=== PATIENT | female | born 1965 | race Caucasian/White ===

== ENCOUNTER 2016-12-15 15:51 | Emergency (ER) | payer MEDICAID ==
[~2016-12-15] VITALS: Ht 167.6 cm; Wt 100.0 kg
[~2016-12-15 15:51] MED LIST: 00186-0372-20 IH; ACTOS 15MG TAB15 MG PO; ALEVE 220MG220 MG PO; AMOXICILLIN 50500 MG PO; AMOXICILLIN 8751 TAB PO; ANTIVERT 25MG25 MG PO; ASPIRIN E.C. 8181 MG PO; BENTYL 20MG20 MG/TAB PO; CALAN80 MG PO; CELEXA 20MG20 MG/TAB PO; CIPRO 500MG TA500 MG PO; CITALOPRAM20 MG PO; CLARITIN 1010 MG/TAB PO; COZAAR 50MG50 MG/TAB PO; CYMBALTA 60MG60 MG PO; DESYREL 50MG50 MG PO; DOXYCYCLINE 10100 MG PO; DULCOLAX TAB5 MG PO; FLAGYL500 MG PO; FLAX SEED OIL1000 M1 PO; FLEXERIL5 MG PO; GLUCOPHAGE1000 MG PO; HCTZ12.5TAB PO; IRON TABLETS325 MG PO; JANUMET 500 MG-1 TA1 PO; JANUVIA 100MG100 MG PO; LEVAQUIN 5500 MG/TA1 PO; LEVAQUIN 750MG750 M1 PO; LEVEMIR FLEX100 U/ML SQ; LIPITOR 10MG10 MG PO; LOPRESSOR 225 MG/TAB PO; MOBIC15 MG PO; NASONEX SPRAY17 GM NS; NEURONTIN300 MG PO; NEURONTIN400 MG/CAP PO; NORCO 325 MG-51 TAB PO; NORVASC 5MG5 MG/TAB PO; OMNICEF 300MG300 MG PO; OSPHENA PO; PEPCID 20MG TAB20 MG PO; PERCOCET 325 MG1 TA2 PO; PERCR 7.5 PO; PHENERGAN 25 TA25 MG PO; PREDNISONE20 MG PO; PREMARIN .3MG0.3 MG PO; PRIL40 PO; PRO AIR INHALER; PROAIR HFA0.09 MG/AC IH; QUESTRAN4 GM/9 GM PO; SINEQUAN 1010 MG/CAP PO; SPRINTEC 35 MCG1 TAB PO; TUSS PO; ULTRAM 50MG TAB50 MG PO; VALIUM 5MG T5 MG/TAB PO; VALTREX 50500 MG/TAB PO; VENTOLIN0.09 MG IH; VOLTAREN GEL 1%1 TU TP; XANAX 0.5MG0.5 MG PO; XANAX0.25 MG PO; ZITHROMAX 250M250 MG PO; ZOVIRAX800 MG PO
[2016-12-15 15:53] VITALS: BP 157/96; TEMP 98.1
[2016-12-15] MEDS ORDERED: COLESTID 1GM1 G PO (16:31)
[2016-12-15] MEDS ORDERED: BENTYL 20MG20 MG/TAB PO (16:33)
[2016-12-15] MEDS ORDERED: PEPCID 20MG TAB20 MG PO (16:34)
[2016-12-15] MEDS ORDERED: LAMICTAL 100MG100 MG PO (16:35)
[2016-12-15] MEDS ORDERED: CALAN80 MG PO (16:37)
[2016-12-15 17:32] VITALS: PULSE 83
== END 2016-12-15 17:34 | disposition home or self-care (01) ==
LOC: COL.ER 15:51
DX: S43.401A Unspecified sprain of right shoulder joint, initial encounter (principal); S46.911A Strain of unspecified muscle, fascia and tendon at shoulder and upper arm level, right arm, initial encounter; S46.912A Strain of unspecified muscle, fascia and tendon at shoulder and upper arm level, left arm, initial encounter; X58.XXXA Exposure to other specified factors, initial encounter; E11.9 Type 2 diabetes mellitus without complications; I10 Essential (primary) hypertension; M79.7 Fibromyalgia; M62.838 Other muscle spasm; Z79.4 Long term (current) use of insulin
CPT/HCPCS: J1170; J2360

== ENCOUNTER 2017-01-03 20:18 | Emergency (ER) | payer MEDICAID ==
[~2017-01-03] VITALS: Ht 167.6 cm; Wt 113.6 kg
[~2017-01-03 20:18] MED LIST changes: +COLESTID 1GM1 G PO; +LAMICTAL 100MG100 MG PO
[2017-01-03 20:24] VITALS: BP 144/74; TEMP 98.1
[2017-01-03 23:01] LABS: BASO # 0.1 (0.0-0.2); BASO % 0.5 % (0.0-2.0); EOS # 0.3 (0.0-0.7); EOS % 2.9 % (0-4.0); GRAN # 6.2 (1.4-6.5); GRAN % 58.9 % (42.2-75.2); HEMATOCRIT 39.6 % (37.0-47.0); HEMOGLOBIN 13.3 g/dl (12.5-16.0); LYMPH # 3.3 (1.2-3.4); LYMPH % 31.7 % (20.0-51.0); MEAN CELL VOLUME 82 fl (80.0-100.0); MEAN CORPUSCULAR HEMOGLOBIN 27 pg (27.0-31.0); MEAN CORPUSCULAR HGB CONC 34 g/dl (33.0-37.0); MEAN PLATELET VOLUME 11.5 fl (7.4-10.4); MONO # 0.6 (0.1-0.6); MONO % 5.6 % (1.7-9.3); PLATELET COUNT 275 K/mm3 (130-400); RED BLOOD COUNT 4.85 M/mm3 (4.10-5.30); REDCELL DISTRIBUTION WIDTH-CV 13.2 % (11.5-14.5); WHITE BLOOD COUNT 10.5 K/mm3 (4.8-10.8)
[2017-01-03 23:12] LABS: ADJUSTED CALCIUM 9.7 mg/dL (8.4-10.2); ALBUMIN 4.2 gm/dL (3.5-5.0); BILIRUBIN,TOTAL 0.7 mg/dL (0.0-1.0); CALCIUM 9.9 mg/dL (8.4-10.2); CREATININE, serum 0.68 mg/dL (0.52-1.25); POTASSIUM 3.8 mmol/L (3.4-5.0); TOTAL PROTEIN 7.5 gm/dL (6.4-8.2)
[2017-01-03 23:36] LABS: PH 5 (5-8); URINE APPEARANCE Hazy; URINE BACTERIA Rare /hpf; URINE BILIRUBIN Negative (NEGATIVE); URINE BLOOD Negative (NEGATIVE); URINE COLOR Yellow; URINE GLUCOSE 1+ (NEGATIVE); URINE KETONE Negative (NEGATIVE); URINE RBC 0-2 /hpf; URINE UROBILINOGEN Negative (NEGATIVE)
[2017-01-04] MEDS ORDERED: TUSS PO (00:59)
[2017-01-04] MEDS ORDERED: PREDNISONE10 MG PO (00:59)
[2017-01-04] MEDS ORDERED: AMOXICILLIN 8751 TAB PO (00:59)
[2017-01-04] MEDS ORDERED: ZOFRAN 4MG T4 MG/TAB PO (01:18)
[2017-01-04 01:33] VITALS: PULSE 98
== END 2017-01-04 01:33 | disposition home or self-care (01) ==
LOC: COL.ER 20:18
PROVIDERS: Emergency Medicine
DX: R10.32 Left lower quadrant pain (principal); J45.901 Unspecified asthma with (acute) exacerbation; E11.9 Type 2 diabetes mellitus without complications; K50.90 Crohn's disease, unspecified, without complications; N28.9 Disorder of kidney and ureter, unspecified
CPT/HCPCS: J1170; J2550; J7030; J7512

== ENCOUNTER → 2017-01-08 | Outpatient (CLI) | payer MEDICAID ==
[~2017-01-08] MED LIST changes: +PHENERGAN W/CO120 M1 PO; +PREDNISONE10 MG PO; +ZOFRAN 4MG T4 MG/TAB PO; +ZOFRAN ODT8 MG PO
== END ==
LOC: COL.RAD 01-01 12:30
DX: M54.5 Low back pain (principal); G89.29 Other chronic pain; M51.36 Other intervertebral disc degeneration, lumbar region; M43.16 Spondylolisthesis, lumbar region; M51.26 Other intervertebral disc displacement, lumbar region

== ENCOUNTER → 2017-01-09 | Outpatient (CLI) | payer MEDICAID | LOC: MHCPAIN 11:12 | DX: G89.29 Other chronic pain (principal); M47.27 Other spondylosis with radiculopathy, lumbosacral region; M53.3 Sacrococcygeal disorders, not elsewhere classified | CPT/HCPCS: G0463 ==

== ENCOUNTER 2017-01-16 20:53 | Emergency (ER) | payer MEDICAID ==
[~2017-01-16] VITALS: Ht 167.6 cm; Wt 113.6 kg
[~2017-01-16 20:53] MED LIST changes: -PHENERGAN W/CO120 M1 PO; -ZOFRAN ODT8 MG PO
[2017-01-16 20:57] VITALS: TEMP 98.5
[2017-01-16 21:30] LABS: BASO % 0.3 % (0.0-2.0); EOS # 0.2 (0.0-0.7); EOS % 1.5 % (0-4.0); GRAN # 6.3 (1.4-6.5); GRAN % 61.6 % (42.2-75.2); HEMATOCRIT 42.3 % (37.0-47.0); LYMPH # 3.1 (1.2-3.4); LYMPH % 29.9 % (20.0-51.0); MEAN CELL VOLUME 82 fl (80.0-100.0); MEAN CORPUSCULAR HEMOGLOBIN 27 pg (27.0-31.0); MEAN CORPUSCULAR HGB CONC 33 g/dl (33.0-37.0); MEAN PLATELET VOLUME 10.7 fl (7.4-10.4); MONO # 0.6 (0.1-0.6); MONO % 6.2 % (1.7-9.3); PLATELET COUNT 255 K/mm3 (130-400); RED BLOOD COUNT 5.15 M/mm3 (4.10-5.30); REDCELL DISTRIBUTION WIDTH-CV 13.5 % (11.5-14.5); WHITE BLOOD COUNT 10.2 K/mm3 (4.8-10.8)
[2017-01-16 21:37] LABS: ALANINE AMINOTRANSFERASE 61 U/L (9-52); ALBUMIN 4.3 gm/dL (3.5-5.0); ALKALINE PHOSPHATASE 98 U/L (50-136); ANION GAP 17 mmol/L (7-16); BILIRUBIN,TOTAL 0.8 mg/dL (0.0-1.0); BLOOD UREA NITROGEN 9 mg/dL (7-17); CALCIUM 9.2 mg/dL (8.4-10.2); CARBON DIOXIDE 25 mmol/L (22-30); CHLORIDE 97 mmol/L (98-107); CREATININE, serum 0.59 mg/dL (0.52-1.25); GLUCOSE 370 mg/dL (74-106); LIPASE 275 U/L (23-300); POTASSIUM 4.4 mmol/L (3.4-5.0); SODIUM 139 mmol/L (137-145); TOTAL PROTEIN 7.4 gm/dL (6.4-8.2)
[2017-01-16 21:49] LABS: B-TYPE NATRIURETIC PEPTIDE 54 pg/mL (0-125)
[2017-01-16 21:55] LABS: TROPONIN-I < 0.012 ng/mL (0.000-0.034)
[2017-01-16] MEDS ORDERED: PHENERGAN W/CO120 M1 PO (22:51)
[2017-01-17 00:01] VITALS: BP 138/84; PULSE 98
== END 2017-01-17 00:10 | disposition home or self-care (01) ==
LOC: COL.ER 20:53
PROVIDERS: Emergency Medicine
DX: R07.89 Other chest pain (principal); I10 Essential (primary) hypertension; E11.9 Type 2 diabetes mellitus without complications; J44.9 Chronic obstructive pulmonary disease, unspecified; F32.9 Major depressive disorder, single episode, unspecified; F41.9 Anxiety disorder, unspecified; Z79.4 Long term (current) use of insulin
CPT/HCPCS: J1170; J1815; J2405; J7030

== ENCOUNTER 2017-02-16 15:36 | Emergency (ER) | payer MEDICAID ==
[~2017-02-16] VITALS: Ht 167.6 cm; Wt 113.6 kg
[~2017-02-16 15:36] MED LIST changes: +PHENERGAN W/CO120 M1 PO
[2017-02-16 15:39] VITALS: TEMP 98.4
[2017-02-16 16:22] LABS: BASO # 0.1 (0.0-0.2); BASO % 0.4 % (0.0-2.0); EOS # 0.4 (0.0-0.7); EOS % 3.6 % (0-4.0); GRAN # 7.3 (1.4-6.5); GRAN % 65.1 % (42.2-75.2); HEMATOCRIT 41.5 % (37.0-47.0); HEMOGLOBIN 14.2 g/dl (12.5-16.0); LYMPH # 2.8 (1.2-3.4); LYMPH % 25.2 % (20.0-51.0); MEAN CELL VOLUME 81 fl (80.0-100.0); MEAN CORPUSCULAR HEMOGLOBIN 28 pg (27.0-31.0); MEAN CORPUSCULAR HGB CONC 34 g/dl (33.0-37.0); MEAN PLATELET VOLUME 11.2 fl (7.4-10.4); MONO # 0.6 (0.1-0.6); MONO % 5.4 % (1.7-9.3); PLATELET COUNT 262 K/mm3 (130-400); RED BLOOD COUNT 5.14 M/mm3 (4.10-5.30); REDCELL DISTRIBUTION WIDTH-CV 13.2 % (11.5-14.5); WHITE BLOOD COUNT 11.2 K/mm3 (4.8-10.8)
[2017-02-16 16:27] LABS: INR 1.2 (0.8-3.0); PROTHROMBIN TIME 12.8 SECONDS (9.7-12.8)
[2017-02-16 16:35] LABS: ADJUSTED CALCIUM 9.5 mg/dL (8.4-10.2); ALBUMIN 4.3 gm/dL (3.5-5.0); BILIRUBIN,TOTAL 0.8 mg/dL (0.0-1.0); C-REACTIVE PROTEIN 2.2 mg/dL (0.0-0.9); CALCIUM 9.7 mg/dL (8.4-10.2); CREATININE, serum 0.6 mg/dL (0.52-1.25); POTASSIUM 3.5 mmol/L (3.4-5.0); TOTAL PROTEIN 7.4 gm/dL (6.4-8.2)
[2017-02-16 16:40] LABS: PH 5 (5-8); URINE APPEARANCE Clear; URINE BACTERIA None Seen /hpf; URINE BILIRUBIN Negative (NEGATIVE); URINE BLOOD Negative (NEGATIVE); URINE COLOR Yellow; URINE GLUCOSE 3+ (NEGATIVE); URINE KETONE Negative (NEGATIVE); URINE RBC 0-2 /hpf; URINE UROBILINOGEN Negative (NEGATIVE)
[2017-02-16] MEDS ORDERED: AMOXICILLIN 8751 TAB PO (17:23)
[2017-02-16] MEDS ORDERED: ZOFRAN ODT8 MG PO (17:41)
[2017-02-16 18:08] VITALS: BP 150/102; PULSE 100
== END 2017-02-16 18:12 | disposition home or self-care (01) ==
LOC: COL.ER 15:36
PROVIDERS: Emergency Medicine
DX: R10.31 Right lower quadrant pain (principal); R10.32 Left lower quadrant pain; R79.89 Other specified abnormal findings of blood chemistry; R11.2 Nausea with vomiting, unspecified; R19.7 Diarrhea, unspecified; K50.90 Crohn's disease, unspecified, without complications; E11.9 Type 2 diabetes mellitus without complications; I10 Essential (primary) hypertension; Z87.891 Personal history of nicotine dependence; Z79.4 Long term (current) use of insulin
CPT/HCPCS: J2270; J2405; J2550; J7030; J7040; Q9967

== ENCOUNTER → 2017-04-05 | Outpatient (CLI) | payer MEDICAID ==
[~2017-04-05] MED LIST changes: +ZOFRAN ODT8 MG PO
== END ==
LOC: COL.RAD 07:27
DX: K76.0 Fatty (change of) liver, not elsewhere classified (principal); K63.89 Other specified diseases of intestine; R16.2 Hepatomegaly with splenomegaly, not elsewhere classified; N26.1 Atrophy of kidney (terminal); N28.89 Other specified disorders of kidney and ureter; R19.09 Other intra-abdominal and pelvic swelling, mass and lump; M54.9 Dorsalgia, unspecified; Z90.49 Acquired absence of other specified parts of digestive tract; Z90.710 Acquired absence of both cervix and uterus
CPT/HCPCS: Q9967

== ENCOUNTER 2017-07-06 22:08 | Inpatient (IN) | payer OTHER ==
[~2017-07-06] VITALS: Ht 167.6 cm; Wt 124.3 kg
[2017-07-06 22:51] LABS: BASO % 0.4 % (0.0-2.0); EOS # 0.2 (0.0-0.7); EOS % 1.6 % (0-4.0); GRAN # 6.8 (1.4-6.5); HEMATOCRIT 41.1 % (37.0-47.0); HEMOGLOBIN 13.9 g/dl (12.5-16.0); LYMPH # 2.6 (1.2-3.4); LYMPH % 25.8 % (20.0-51.0); MEAN CELL VOLUME 81 fl (80.0-100.0); MEAN CORPUSCULAR HEMOGLOBIN 28 pg (27.0-31.0); MEAN CORPUSCULAR HGB CONC 34 g/dl (33.0-37.0); MONO # 0.6 (0.1-0.6); PLATELET COUNT 260 K/mm3 (130-400); RED BLOOD COUNT 5.05 M/mm3 (4.10-5.30); WHITE BLOOD COUNT 10.3 K/mm3 (4.8-10.8)
[2017-07-06 23:02] LABS: ADJUSTED CALCIUM 9.8 mg/dL (8.4-10.2); ALBUMIN 4.2 gm/dL (3.5-5.0); BILIRUBIN,TOTAL 0.5 mg/dL (0.0-1.0); C-REACTIVE PROTEIN 1.6 mg/dL (0.0-0.9); CREATININE, serum 0.71 mg/dL (0.52-1.25); POTASSIUM 4.4 mmol/L (3.4-5.0); TOTAL PROTEIN 7.5 gm/dL (6.4-8.2)
[2017-07-06 23:09] LABS: COLLECTION METHOD CLEAN CATCH
[2017-07-06 23:16] LABS: PH 5 (5-8); SQUAMOUS EPITHELIAL 0-2 /hpf; URINE APPEARANCE Clear; URINE BACTERIA None Seen /hpf; URINE BILIRUBIN Negative (NEGATIVE); URINE BLOOD Negative (NEGATIVE); URINE COLOR Straw; URINE GLUCOSE 3+ (NEGATIVE); URINE KETONE Negative (NEGATIVE); URINE LEUKOCYTE ESTERASE Negative (NEGATIVE); URINE PROTEIN(semi-quant) Negative (NEGATIVE); URINE RBC 0-2 /hpf; URINE UROBILINOGEN Negative (NEGATIVE); URINE WBC 0-2 /hpf
[2017-07-07] VITALS (468 sets, daily range): BP systolic 115–145; BP diastolic 69–82; PULSE 84–93; TEMP 97.8–98.5; O2SAT 91–99
[2017-07-07 06:24] LABS: BASO # 0.1 (0.0-0.2); BASO % 0.5 % (0.0-2.0); EOS # 0.2 (0.0-0.7); EOS % 2.3 % (0-4.0); GRAN # 5.8 (1.4-6.5); GRAN % 59.2 % (42.2-75.2); HEMATOCRIT 37.8 % (37.0-47.0); HEMOGLOBIN 12.5 g/dl (12.5-16.0); LYMPH % 30.8 % (20.0-51.0); MEAN CELL VOLUME 83 fl (80.0-100.0); MEAN CORPUSCULAR HEMOGLOBIN 27 pg (27.0-31.0); MEAN CORPUSCULAR HGB CONC 33 g/dl (33.0-37.0); MEAN PLATELET VOLUME 11.2 fl (7.4-10.4); MONO # 0.7 (0.1-0.6); MONO % 6.9 % (1.7-9.3); PLATELET COUNT 257 K/mm3 (130-400); RED BLOOD COUNT 4.57 M/mm3 (4.10-5.30); WHITE BLOOD COUNT 9.8 K/mm3 (4.8-10.8)
[2017-07-07 07:54] LABS: CALCIUM 9.2 mg/dL (8.4-10.2); CREATININE, serum 0.68 mg/dL (0.52-1.25); POTASSIUM 4.1 mmol/L (3.4-5.0)
[2017-07-08 00:02] VITALS: BP 106/52; PULSE 91; TEMP 98.4
[2017-07-08 03:11] VITALS: BP 140/74; PULSE 92; TEMP 97.9
[2017-07-08 08:20] VITALS: BP 135/68; PULSE 89; TEMP 98.1
[2017-07-08 09:03] LABS: CALCIUM 8.5 mg/dL (8.4-10.2); CREATININE, serum 0.59 mg/dL (0.52-1.25); POTASSIUM 4.2 mmol/L (3.4-5.0)
[2017-07-08 11:15] VITALS: BP 134/66; PULSE 98; TEMP 98.4
[2017-07-08 16:32] VITALS: BP 125/68; PULSE 98; TEMP 98.4
[2017-07-08 20:14] VITALS: BP 131/73; PULSE 98; TEMP 97.8
[2017-07-09] VITALS (7 sets, daily range): BP systolic 112–134; BP diastolic 62–86; PULSE 87–93; TEMP 97.9–98.3
[2017-07-09 08:08] LABS: CALCIUM 9.4 mg/dL (8.4-10.2); CREATININE, serum 0.58 mg/dL (0.52-1.25); POTASSIUM 3.9 mmol/L (3.4-5.0)
[2017-07-09 10:03] LABS: CHOLESTEROL RISK RATIO 6.6
[2017-07-10 07:33] LABS: CALCIUM 9.6 mg/dL (8.4-10.2); CREATININE, serum 0.62 mg/dL (0.52-1.25); POTASSIUM 3.8 mmol/L (3.4-5.0)
[2017-07-10 08:49] VITALS: BP 125/59; PULSE 92; TEMP 98.2
[2017-07-10 12:22] VITALS: BP 129/82; PULSE 93; TEMP 98.1
[2017-07-10 16:02] VITALS: BP 108/67; PULSE 94; TEMP 98.2
[2017-07-10 20:33] VITALS: BP 114/76; PULSE 90; TEMP 98
[2017-07-10 23:18] VITALS: BP 114/56; PULSE 89; TEMP 98.4
[2017-07-11 03:22] VITALS: BP 125/79; PULSE 92; TEMP 98
[2017-07-11 07:15] LABS: CALCIUM 9.5 mg/dL (8.4-10.2); CREATININE, serum 0.59 mg/dL (0.52-1.25); POTASSIUM 3.9 mmol/L (3.4-5.0)
[2017-07-11 07:57] VITALS: BP 138/80; PULSE 81; TEMP 98.4
[2017-07-11] MEDS ORDERED: LIPITOR 40MG TA40 MG PO (11:22)
[2017-07-11] MEDS ORDERED: NOVLOG SQ (11:24)
[2017-07-11] MEDS ORDERED: LEVEMIR100 U/ML SQ (11:25)
[2017-07-11 11:42] VITALS: BP 139/79; PULSE 100; TEMP 98.2
== END 2017-07-11 13:11 | disposition home or self-care (01) | DRG 638 ==
LOC: COL.ER 22:08 → ICU 23:23 → MEDICAL 23:23
PROVIDERS: Family Medicine; Nurse Practitioner; Physician Assistant
DX: E11.65 Type 2 diabetes mellitus with hyperglycemia (principal); K50.90 Crohn's disease, unspecified, without complications; Z68.41 Body mass index [BMI] 40.0-44.9, adult; E86.0 Dehydration; J44.9 Chronic obstructive pulmonary disease, unspecified; M79.7 Fibromyalgia; E11.42 Type 2 diabetes mellitus with diabetic polyneuropathy; I10 Essential (primary) hypertension; Z91.120 Patient's intentional underdosing of medication regimen due to financial hardship; Z87.891 Personal history of nicotine dependence; Z79.4 Long term (current) use of insulin; E83.39 Other disorders of phosphorus metabolism
CPT/HCPCS: 99223-AI; 99232-AI; 99238; J1644; J1815; J2405; J7030

== ENCOUNTER → 2017-08-15 | Outpatient (CLI) | payer OTHER ==
[~2017-08-15] MED LIST changes: +LEVEMIR100 U/ML SQ; +LIPITOR 40MG TA40 MG PO; +NOVLOG SQ
== END ==
LOC: SUN.DIA 10:17
DX: E11.40 Type 2 diabetes mellitus with diabetic neuropathy, unspecified (principal); Z79.4 Long term (current) use of insulin; E78.5 Hyperlipidemia, unspecified; I10 Essential (primary) hypertension; E66.9 Obesity, unspecified; Z68.41 Body mass index [BMI] 40.0-44.9, adult; Z71.3 Dietary counseling and surveillance; Z87.891 Personal history of nicotine dependence
CPT/HCPCS: G0108

== ENCOUNTER 2017-08-17 00:06 | Emergency (ER) | payer OTHER ==
[~2017-08-17] VITALS: Ht 167.6 cm; Wt 116.8 kg
[2017-08-17 00:18] VITALS: TEMP 98.9
[2017-08-17 01:07] LABS: BASO % 0.4 % (0.0-2.0); EOS # 0.2 (0.0-0.7); EOS % 1.9 % (0-4.0); GRAN # 6.1 (1.4-6.5); GRAN % 58.8 % (42.2-75.2); HEMATOCRIT 40.5 % (37.0-47.0); HEMOGLOBIN 13.1 g/dl (12.5-16.0); LYMPH # 3.3 (1.2-3.4); LYMPH % 31.9 % (20.0-51.0); MEAN CELL VOLUME 83 fl (80.0-100.0); MEAN CORPUSCULAR HEMOGLOBIN 27 pg (27.0-31.0); MEAN CORPUSCULAR HGB CONC 32 g/dl (33.0-37.0); MEAN PLATELET VOLUME 10.9 fl (7.4-10.4); MONO # 0.7 (0.1-0.6); MONO % 6.7 % (1.7-9.3); PLATELET COUNT 300 K/mm3 (130-400); RED BLOOD COUNT 4.86 M/mm3 (4.10-5.30); WHITE BLOOD COUNT 10.3 K/mm3 (4.8-10.8)
[2017-08-17 01:12] LABS: PROTHROMBIN TIME 11.7 SECONDS (9.7-12.8)
[2017-08-17 01:15] LABS: PARTIAL THROMBOPLASTIN TIME 28.1 SECONDS (26.0-37.0)
[2017-08-17 01:17] LABS: ADJUSTED CALCIUM 9.5 mg/dL (8.4-10.2); ALANINE AMINOTRANSFERASE 60 U/L (9-52); ALBUMIN 4.3 gm/dL (3.5-5.0); ALKALINE PHOSPHATASE 113 U/L (50-136); ANION GAP 12 mmol/L (7-16); BILIRUBIN,TOTAL 0.4 mg/dL (0.0-1.0); BLOOD UREA NITROGEN 15 mg/dL (7-17); CALCIUM 9.7 mg/dL (8.4-10.2); CARBON DIOXIDE 25 mmol/L (22-30); CHLORIDE 102 mmol/L (98-107); CREATININE, serum 0.63 mg/dL (0.52-1.25); GLUCOSE 329 mg/dL (74-106); POTASSIUM 4.2 mmol/L (3.4-5.0); SODIUM 139 mmol/L (137-145); TOTAL PROTEIN 7.5 gm/dL (6.4-8.2)
[2017-08-17 01:28] LABS: TROPONIN-I < 0.012 ng/mL (0.000-0.034)
[2017-08-17] MEDS ORDERED: NEURONTIN400 MG/CAP PO (04:32)
[2017-08-17 05:05] VITALS: BP 144/89; PULSE 76
== END 2017-08-17 05:09 | disposition home or self-care (01) ==
LOC: COL.ER 00:06
PROVIDERS: Emergency Medicine
DX: M62.838 Other muscle spasm (principal); R07.89 Other chest pain; M54.9 Dorsalgia, unspecified; M54.2 Cervicalgia; M79.602 Pain in left arm; I10 Essential (primary) hypertension; E11.9 Type 2 diabetes mellitus without complications; E78.5 Hyperlipidemia, unspecified; E66.9 Obesity, unspecified; M79.7 Fibromyalgia; Z79.4 Long term (current) use of insulin; Z95.5 Presence of coronary angioplasty implant and graft; Z87.891 Personal history of nicotine dependence; Z79.82 Long term (current) use of aspirin
CPT/HCPCS: J1815; J1885; J2360

== ENCOUNTER 2017-11-07 22:04 | Emergency (ER) | payer OTHER ==
[~2017-11-07] VITALS: Ht 167.6 cm; Wt 113.6 kg
[2017-11-07 22:12] VITALS: TEMP 98.3
[2017-11-08 00:32] VITALS: BP 138/92; PULSE 91
== END 2017-11-08 00:33 | disposition home or self-care (01) ==
LOC: COL.ER 22:04
DX: S40.012A Contusion of left shoulder, initial encounter (principal); S63.91XA Sprain of unspecified part of right wrist and hand, initial encounter; J45.909 Unspecified asthma, uncomplicated; F32.9 Major depressive disorder, single episode, unspecified; E11.9 Type 2 diabetes mellitus without complications; I10 Essential (primary) hypertension; F17.210 Nicotine dependence, cigarettes, uncomplicated; M79.7 Fibromyalgia; Z79.4 Long term (current) use of insulin; W22.8XXA Striking against or struck by other objects, initial encounter; Y92.410 Unspecified street and highway as the place of occurrence of the external cause
CPT/HCPCS: Q4021

== ENCOUNTER 2018-03-02 10:10 | Emergency (ER) | payer SELFPAY ==
[~2018-03-02] VITALS: Ht 167.6 cm; Wt 124.1 kg
[2018-03-02 10:17] VITALS: BP 151/85; TEMP 99
[2018-03-02 11:00] LABS: COLLECTION METHOD CLEAN CATCH
[2018-03-02 11:06] LABS: MUCOUS Present /lpf; PH 5 (5-8); URINE APPEARANCE Hazy; URINE BACTERIA Rare /hpf; URINE BILIRUBIN Negative (NEGATIVE); URINE BLOOD Negative (NEGATIVE); URINE COLOR Yellow; URINE GLUCOSE Negative (NEGATIVE); URINE KETONE Negative (NEGATIVE); URINE LEUKOCYTE ESTERASE Negative (NEGATIVE); URINE NITRATE Negative (NEGATIVE); URINE PROTEIN(semi-quant) 1+ (NEGATIVE); URINE RBC 0-2 /hpf; URINE UROBILINOGEN Negative (NEGATIVE)
[2018-03-02 11:14] LABS: BASO % 0.4 % (0.0-2.0); EOS # 0.3 (0.0-0.7); EOS % 3.2 % (0-4.0); GRAN # 5.5 (1.4-6.5); GRAN % 65.1 % (42.2-75.2); HEMATOCRIT 39.1 % (37.0-47.0); HEMOGLOBIN 12.4 g/dl (12.5-16.0); LYMPH # 2.1 (1.2-3.4); LYMPH % 24.3 % (20.0-51.0); MEAN CELL VOLUME 82 fl (80.0-100.0); MEAN CORPUSCULAR HEMOGLOBIN 26 pg (27.0-31.0); MEAN CORPUSCULAR HGB CONC 32 g/dl (33.0-37.0); MEAN PLATELET VOLUME 10.4 fl (7.4-10.4); MONO # 0.6 (0.1-0.6); MONO % 6.6 % (1.7-9.3); PLATELET COUNT 341 K/mm3 (130-400); RED BLOOD COUNT 4.78 M/mm3 (4.10-5.30); REDCELL DISTRIBUTION WIDTH-CV 14.3 % (11.5-14.5)
[2018-03-02 11:25] LABS: ALBUMIN 3.6 gm/dL (3.5-5.0); BILIRUBIN,TOTAL 0.3 mg/dL (0.0-1.0); CALCIUM 9.4 mg/dL (8.4-10.2); CREATININE, serum 0.66 mg/dL (0.52-1.25); POTASSIUM 4.2 mmol/L (3.4-5.0); TOTAL PROTEIN 6.7 gm/dL (6.4-8.2)
[2018-03-02] MEDS ORDERED: ULTRAM 50MG TAB50 MG PO (12:15)
[2018-03-02] MEDS ORDERED: TRIAM OI 15 0.025 TOP (13:03)
[2018-03-02 13:10] VITALS: PULSE 87
== END 2018-03-02 13:11 | disposition home or self-care (01) ==
LOC: COL.ER 10:10
PROVIDERS: Emergency Medicine
DX: E10.65 Type 1 diabetes mellitus with hyperglycemia (principal); M79.602 Pain in left arm; M25.512 Pain in left shoulder; M54.5 Low back pain; Z79.4 Long term (current) use of insulin; Z88.2 Allergy status to sulfonamides; Z88.1 Allergy status to other antibiotic agents; Z88.8 Allergy status to other drugs, medicaments and biological substances; Z79.82 Long term (current) use of aspirin; Z79.51 Long term (current) use of inhaled steroids; X50.0XXA Overexertion from strenuous movement or load, initial encounter; Y99.0 Civilian activity done for income or pay; Y92.59 Other trade areas as the place of occurrence of the external cause
CPT/HCPCS: J1170; J1885; J2405; J7030

== ENCOUNTER 2018-05-23 19:20 | Emergency (ER) | payer SELFPAY ==
[~2018-05-23] VITALS: Ht 167.6 cm; Wt 113.6 kg
[~2018-05-23 19:20] MED LIST changes: +TRIAM OI 15 0.025 TOP
[2018-05-23 19:27] VITALS: BP 111/64; TEMP 97.9
[2018-05-23 21:51] LABS: BASO % 0.3 % (0.0-2.0); EOS # 0.1 (0.0-0.7); EOS % 0.9 % (0-4.0); GRAN # 10.3 (1.4-6.5); GRAN % 79.2 % (42.2-75.2); HEMATOCRIT 40.5 % (37.0-47.0); HEMOGLOBIN 12.7 g/dl (12.5-16.0); LYMPH # 1.8 (1.2-3.4); LYMPH % 14.2 % (20.0-51.0); MEAN CELL VOLUME 80 fl (80.0-100.0); MEAN CORPUSCULAR HEMOGLOBIN 25 pg (27.0-31.0); MEAN CORPUSCULAR HGB CONC 31 g/dl (33.0-37.0); MONO # 0.6 (0.1-0.6); MONO % 4.9 % (1.7-9.3); PLATELET COUNT 313 K/mm3 (130-400); RED BLOOD COUNT 5.05 M/mm3 (4.10-5.30); REDCELL DISTRIBUTION WIDTH-CV 14.2 % (11.5-14.5)
[2018-05-23 22:06] LABS: ALANINE AMINOTRANSFERASE 56 U/L (9-52); ALBUMIN 4.2 gm/dL (3.5-5.0); ALKALINE PHOSPHATASE 93 U/L (50-136); ANION GAP 16 mmol/L (7-16); AST,SGOT 56 U/L (15-37); BILIRUBIN,TOTAL 0.3 mg/dL (0.0-1.0); BLOOD UREA NITROGEN 15 mg/dL (7-17); C-REACTIVE PROTEIN 2.2 mg/dL (0.0-0.9); CALCIUM 9.3 mg/dL (8.4-10.2); CARBON DIOXIDE 24 mmol/L (22-30); CHLORIDE 96 mmol/L (98-107); CREATININE, serum 0.97 mg/dL (0.52-1.25); GLUCOSE 314 mg/dL (74-106); LIPASE 137 U/L (23-300); POTASSIUM 4.2 mmol/L (3.4-5.0); SODIUM 136 mmol/L (137-145); TOTAL PROTEIN 7.2 gm/dL (6.4-8.2)
[2018-05-23 22:11] LABS: COLLECTION METHOD CLEAN CATCH
[2018-05-23 22:15] LABS: TROPONIN-I < 0.012 ng/mL (0.000-0.034)
[2018-05-23 22:23] LABS: GRANULAR CAST >12 /lpf; HYALINE CAST >12 /lpf; MUCOUS Present /lpf; PH 5 (5-8); URINE APPEARANCE Cloudy; URINE BACTERIA None Seen /hpf; URINE BILIRUBIN Positive (NEGATIVE); URINE BLOOD Negative (NEGATIVE); URINE COLOR Amber; URINE GLUCOSE Negative (NEGATIVE); URINE KETONE Trace (NEGATIVE); URINE LEUKOCYTE ESTERASE Negative (NEGATIVE); URINE NITRATE Negative (NEGATIVE); URINE PROTEIN(semi-quant) 3+ (NEGATIVE)
[2018-05-24] MEDS ORDERED: PHENERGAN 25 TA25 MG PO (00:13)
[2018-05-24 00:22] VITALS: PULSE 92
== END 2018-05-24 00:22 | disposition home or self-care (01) ==
LOC: COL.ER 19:20
PROVIDERS: Nurse Practitioner
DX: R10.9 Unspecified abdominal pain (principal); R51 Headache; E11.9 Type 2 diabetes mellitus without complications; I10 Essential (primary) hypertension; J45.909 Unspecified asthma, uncomplicated; K50.90 Crohn's disease, unspecified, without complications; M79.7 Fibromyalgia; M54.9 Dorsalgia, unspecified; G89.29 Other chronic pain; F17.210 Nicotine dependence, cigarettes, uncomplicated; Z79.4 Long term (current) use of insulin; Z79.82 Long term (current) use of aspirin; Z90.49 Acquired absence of other specified parts of digestive tract; Z90.710 Acquired absence of both cervix and uterus
CPT/HCPCS: J1170; J2405; J2550; J7030

== ENCOUNTER 2018-09-03 21:45 | Emergency (ER) | payer SELFPAY ==
[~2018-09-03] VITALS: Ht 167.6 cm; Wt 113.6 kg
[2018-09-03 21:55] VITALS: TEMP 97.7
[2018-09-03 22:42] LABS: BASO # 0.1 (0.0-0.2); BASO % 0.4 % (0.0-2.0); EOS # 0.3 (0.0-0.7); EOS % 2.9 % (0-4.0); GRAN # 7.6 (1.4-6.5); HEMATOCRIT 37.6 % (37.0-47.0); LYMPH # 2.9 (1.2-3.4); MEAN CELL VOLUME 80 fl (80.0-100.0); MEAN CORPUSCULAR HEMOGLOBIN 26 pg (27.0-31.0); MEAN CORPUSCULAR HGB CONC 32 g/dl (33.0-37.0); MEAN PLATELET VOLUME 9.8 fl (7.4-10.4); MONO # 0.8 (0.1-0.6); MONO % 6.4 % (1.7-9.3); PLATELET COUNT 352 K/mm3 (130-400); RED BLOOD COUNT 4.68 M/mm3 (4.10-5.30); REDCELL DISTRIBUTION WIDTH-CV 14.6 % (11.5-14.5)
[2018-09-03 22:52] LABS: ALBUMIN 3.9 gm/dL (3.5-5.0); BILIRUBIN,TOTAL 0.5 mg/dL (0.0-1.0); CALCIUM 8.9 mg/dL (8.4-10.2); CREATININE, serum 0.68 mg/dL (0.52-1.25); POTASSIUM 3.7 mmol/L (3.4-5.0); TOTAL PROTEIN 6.8 gm/dL (6.4-8.2)
[2018-09-03] MEDS ORDERED: ZITHROMAX500 M2 PO (23:39)
[2018-09-04 00:37] VITALS: BP 132/83; PULSE 96
== END 2018-09-04 00:37 | disposition home or self-care (01) ==
LOC: COL.ER 21:45
PROVIDERS: Family Medicine
DX: J06.9 Acute upper respiratory infection, unspecified (principal); B34.9 Viral infection, unspecified; J44.9 Chronic obstructive pulmonary disease, unspecified; Z79.4 Long term (current) use of insulin; Z79.82 Long term (current) use of aspirin; Z87.891 Personal history of nicotine dependence
CPT/HCPCS: J1885; J7030

== ENCOUNTER 2018-11-30 18:21 | Emergency (ER) | payer SELFPAY ==
[~2018-11-30] VITALS: Ht 167.6 cm; Wt 113.6 kg
[~2018-11-30 18:21] MED LIST changes: +ZITHROMAX500 M2 PO
[2018-11-30 18:29] VITALS: BP 171/79; PULSE 98; TEMP 98.5
== END 2018-11-30 20:36 | disposition home or self-care (01) ==
LOC: COL.ER 18:21
DX: Z71.1 Person with feared health complaint in whom no diagnosis is made (principal); E11.9 Type 2 diabetes mellitus without complications; I10 Essential (primary) hypertension; J45.909 Unspecified asthma, uncomplicated; M79.7 Fibromyalgia; Z79.4 Long term (current) use of insulin; Z87.891 Personal history of nicotine dependence

== ENCOUNTER 2019-01-14 11:04 | Emergency (ER) | payer SELFPAY ==
[~2019-01-14] VITALS: Ht 167.6 cm; Wt 109.1 kg
[2019-01-14 12:03] LABS: COLLECTION METHOD CLEAN CATCH
[2019-01-14 12:10] LABS: PH 5 (5-8); URINE APPEARANCE Clear; URINE BACTERIA None Seen /hpf; URINE BILIRUBIN Negative (NEGATIVE); URINE BLOOD Negative (NEGATIVE); URINE COLOR Yellow; URINE GLUCOSE 3+ (NEGATIVE); URINE KETONE Negative (NEGATIVE); URINE LEUKOCYTE ESTERASE Trace (NEGATIVE); URINE NITRATE Negative (NEGATIVE); URINE PROTEIN(semi-quant) Negative (NEGATIVE); URINE UROBILINOGEN Negative (NEGATIVE)
[2019-01-14 12:45] LABS: BASO % 0.4 % (0.0-2.0); EOS # 0.3 (0.0-0.7); EOS % 2.6 % (0-4.0); GRAN # 6.6 (1.4-6.5); GRAN % 60.5 % (42.2-75.2); HEMATOCRIT 40.3 % (37.0-47.0); HEMOGLOBIN 13.1 g/dl (12.5-16.0); LYMPH # 3.2 (1.2-3.4); LYMPH % 29.2 % (20.0-51.0); MEAN CELL VOLUME 79 fl (80.0-100.0); MEAN CORPUSCULAR HEMOGLOBIN 26 pg (27.0-31.0); MEAN CORPUSCULAR HGB CONC 33 g/dl (33.0-37.0); MONO # 0.7 (0.1-0.6); MONO % 6.8 % (1.7-9.3); PLATELET COUNT 297 K/mm3 (130-400); REDCELL DISTRIBUTION WIDTH-CV 14.5 % (11.5-14.5)
[2019-01-14 12:53] LABS: ALBUMIN 3.9 gm/dL (3.5-5.0); BILIRUBIN,TOTAL 0.4 mg/dL (0.0-1.0); CALCIUM 9.8 mg/dL (8.4-10.2); CREATININE, serum 0.63 (0.52-1.25); POTASSIUM 4.3 mmol/L (3.4-5.0); TOTAL PROTEIN 6.8 gm/dL (6.4-8.2)
[2019-01-14 13:07] LABS: STREP SCREEN NEGATIVE
[2019-01-14] MEDS ORDERED: LOPRESSOR 225 MG/TAB PO (13:19)
[2019-01-14] MEDS ORDERED: LIPITOR20 MG PO (13:19)
[2019-01-14] MEDS ORDERED: NEURONTIN400 MG/CAP PO (14:39)
[2019-01-14] MEDS ORDERED: FLEXERIL 1010 MG/TAB PO (14:39)
[2019-01-14] MEDS ORDERED: MACROBID 1100 MG/CAP PO (14:50)
[2019-01-14 15:05] VITALS: BP 131/77; PULSE 115; TEMP 98.3
== END 2019-01-14 15:05 | disposition home or self-care (01) ==
LOC: COL.ER 11:04
PROVIDERS: Nurse Practitioner Primary Care
DX: E11.65 Type 2 diabetes mellitus with hyperglycemia (principal); N39.0 Urinary tract infection, site not specified; B34.9 Viral infection, unspecified; I10 Essential (primary) hypertension; M79.7 Fibromyalgia; F41.9 Anxiety disorder, unspecified; Z98.890 Other specified postprocedural states; Z79.82 Long term (current) use of aspirin; Z79.4 Long term (current) use of insulin
CPT/HCPCS: J1815; J1885; J2550; J7030

== ENCOUNTER 2019-01-22 19:28 | Emergency (ER) | payer SELFPAY ==
[~2019-01-22] VITALS: Ht 167.6 cm; Wt 109.1 kg
[~2019-01-22 19:28] MED LIST changes: +FLEXERIL 1010 MG/TAB PO; +LIPITOR20 MG PO; +MACROBID 1100 MG/CAP PO
[2019-01-22 19:38] VITALS: TEMP 97.7
[2019-01-22 20:12] LABS: BASO % 0.3 % (0.0-2.0); EOS # 0.2 (0.0-0.7); EOS % 2.2 % (0-4.0); GRAN # 6.5 (1.4-6.5); GRAN % 66.2 % (42.2-75.2); HEMATOCRIT 41.5 % (37.0-47.0); HEMOGLOBIN 13.3 g/dl (12.5-16.0); LYMPH # 2.4 (1.2-3.4); LYMPH % 24.9 % (20.0-51.0); MEAN CELL VOLUME 79 fl (80.0-100.0); MEAN CORPUSCULAR HEMOGLOBIN 25 pg (27.0-31.0); MEAN CORPUSCULAR HGB CONC 32 g/dl (33.0-37.0); MEAN PLATELET VOLUME 10.5 fl (7.4-10.4); MONO # 0.6 (0.1-0.6); MONO % 6.1 % (1.7-9.3); PLATELET COUNT 303 K/mm3 (130-400); RED BLOOD COUNT 5.23 M/mm3 (4.10-5.30); REDCELL DISTRIBUTION WIDTH-CV 14.3 % (11.5-14.5)
[2019-01-22 20:22] LABS: ALBUMIN 4.2 gm/dL (3.5-5.0); BILIRUBIN,TOTAL 0.3 mg/dL (0.0-1.0); CALCIUM 9.8 mg/dL (8.4-10.2); CREATININE, serum 0.6 (0.52-1.25); POTASSIUM 4.4 mmol/L (3.4-5.0); TOTAL PROTEIN 7.3 gm/dL (6.4-8.2)
[2019-01-22] MEDS ORDERED: NORCO 325 MG-51 TAB PO (21:32)
[2019-01-22 22:36] VITALS: BP 122/88; PULSE 92
== END 2019-01-22 22:36 | disposition home or self-care (01) ==
LOC: COL.ER 19:28
PROVIDERS: Emergency Medicine
DX: R59.9 Enlarged lymph nodes, unspecified (principal); M79.7 Fibromyalgia; E78.5 Hyperlipidemia, unspecified; I10 Essential (primary) hypertension; E11.9 Type 2 diabetes mellitus without complications; K50.90 Crohn's disease, unspecified, without complications; Z94.9 Transplanted organ and tissue status, unspecified; Z90.710 Acquired absence of both cervix and uterus; Z98.890 Other specified postprocedural states; Z79.82 Long term (current) use of aspirin; Z79.4 Long term (current) use of insulin
CPT/HCPCS: J1815; J1885; J2765; J3010; J7030; Q9967

== ENCOUNTER 2019-05-21 18:13 | Emergency (ER) | payer SELFPAY ==
[~2019-05-21] VITALS: Ht 167.6 cm; Wt 109.1 kg
[2019-05-21 18:25] VITALS: BP 142/82
[2019-05-21] MEDS ORDERED: CEPHALEXIN500 M1 PO (19:12)
[2019-05-21 19:58] VITALS: PULSE 85
== END 2019-05-21 19:58 | disposition home or self-care (01) ==
LOC: COL.ER 18:13
DX: S61.217A Laceration without foreign body of left little finger without damage to nail, initial encounter (principal); Z79.82 Long term (current) use of aspirin; Z79.4 Long term (current) use of insulin; W26.8XXA Contact with other sharp object(s), not elsewhere classified, initial encounter; Y92.59 Other trade areas as the place of occurrence of the external cause

== ENCOUNTER 2019-06-04 14:19 | Emergency (ER) | payer SELFPAY ==
[~2019-06-04] VITALS: Ht 167.6 cm; Wt 109.1 kg
[~2019-06-04 14:19] MED LIST changes: +CEPHALEXIN500 M1 PO
[2019-06-04 14:24] VITALS: TEMP 98.1
[2019-06-04 15:09] LABS: COLLECTION METHOD CLEAN CATCH
[2019-06-04 15:12] LABS: BASO % 0.3 % (0.0-2.0); EOS # 0.3 (0.0-0.7); EOS % 3.6 % (0-4.0); GRAN # 5.8 (1.4-6.5); GRAN % 62.9 % (42.2-75.2); HEMATOCRIT 39.8 % (37.0-47.0); HEMOGLOBIN 12.3 g/dl (12.5-16.0); LYMPH # 2.4 (1.2-3.4); LYMPH % 25.8 % (20.0-51.0); MEAN CELL VOLUME 83 fl (80.0-100.0); MEAN CORPUSCULAR HEMOGLOBIN 26 pg (27.0-31.0); MEAN CORPUSCULAR HGB CONC 31 g/dl (33.0-37.0); MEAN PLATELET VOLUME 9.8 fl (7.4-10.4); MONO # 0.7 (0.1-0.6); MONO % 7.1 % (1.7-9.3); PLATELET COUNT 349 K/mm3 (130-400); RED BLOOD COUNT 4.82 M/mm3 (4.10-5.30); REDCELL DISTRIBUTION WIDTH-CV 14.4 % (11.5-14.5)
[2019-06-04 15:17] LABS: PROTHROMBIN TIME 11.4 SECONDS (9.7-12.8)
[2019-06-04 15:21] LABS: MUCOUS Present /lpf; PH 5 (5-8); URINE APPEARANCE Hazy; URINE BACTERIA Rare /hpf; URINE BILIRUBIN Negative (NEGATIVE); URINE BLOOD Negative (NEGATIVE); URINE COLOR Yellow; URINE GLUCOSE Negative (NEGATIVE); URINE KETONE Negative (NEGATIVE); URINE LEUKOCYTE ESTERASE Negative (NEGATIVE); URINE NITRATE Negative (NEGATIVE); URINE PROTEIN(semi-quant) 1+ (NEGATIVE); URINE RBC 0-2 /hpf; URINE UROBILINOGEN Negative (NEGATIVE)
[2019-06-04 15:23] LABS: ALANINE AMINOTRANSFERASE 19 U/L (9-52); ALBUMIN 3.9 gm/dL (3.5-5.0); ALKALINE PHOSPHATASE 79 U/L (50-136); ANION GAP 8 mmol/L (7-16); AST,SGOT 28 U/L (15-37); BILIRUBIN,TOTAL 0.3 mg/dL (0.0-1.0); BLOOD UREA NITROGEN 10 mg/dL (7-17); CALCIUM 9.1 mg/dL (8.4-10.2); CARBON DIOXIDE 30 mmol/L (22-30); CHLORIDE 104 mmol/L (98-107); CREATININE, serum 0.69 (0.52-1.25); GLUCOSE 75 mg/dL (74-106); POTASSIUM 3.9 mmol/L (3.4-5.0); SODIUM 141 mmol/L (137-145); TOTAL PROTEIN 6.6 gm/dL (6.4-8.2)
[2019-06-04 15:39] LABS: TROPONIN-I < 0.012 ng/mL (0.000-0.035)
[2019-06-04 17:37] VITALS: BP 140/85; PULSE 82
== END 2019-06-04 17:35 | disposition home or self-care (01) ==
LOC: COL.ER 14:19
PROVIDERS: Emergency Medicine
DX: E11.649 Type 2 diabetes mellitus with hypoglycemia without coma (principal); J44.9 Chronic obstructive pulmonary disease, unspecified; K50.90 Crohn's disease, unspecified, without complications; M79.7 Fibromyalgia; Z79.84 Long term (current) use of oral hypoglycemic drugs; Z87.891 Personal history of nicotine dependence; Z90.89 Acquired absence of other organs; Z90.710 Acquired absence of both cervix and uterus; Z79.82 Long term (current) use of aspirin; Z79.4 Long term (current) use of insulin

== ENCOUNTER 2019-06-28 21:51 | Emergency (ER) | payer SELFPAY ==
[~2019-06-28] VITALS: Ht 167.6 cm; Wt 109.1 kg
[2019-06-28 22:00] VITALS: TEMP 98.3
[2019-06-28 23:02] VITALS: BP 158/83; PULSE 95
== END 2019-06-28 23:02 | disposition home or self-care (01) ==
LOC: COL.ER 21:51
DX: G56.02 Carpal tunnel syndrome, left upper limb (principal); E11.9 Type 2 diabetes mellitus without complications; J44.9 Chronic obstructive pulmonary disease, unspecified; M79.7 Fibromyalgia; E66.9 Obesity, unspecified; Z79.82 Long term (current) use of aspirin; Z79.4 Long term (current) use of insulin; Z68.38 Body mass index [BMI] 38.0-38.9, adult

== ENCOUNTER 2019-08-22 22:20 | Emergency (ER) | payer SELFPAY ==
[~2019-08-22] VITALS: Ht 167.6 cm; Wt 113.6 kg
[2019-08-22 22:26] VITALS: TEMP 98.3
[2019-08-22 23:03] LABS: BASO # 0.1 (0.0-0.2); BASO % 0.6 % (0.0-2.0); EOS # 0.3 (0.0-0.7); EOS % 2.6 % (0-4.0); GRAN # 6.2 (1.4-6.5); GRAN % 59.6 % (42.2-75.2); HEMATOCRIT 39.8 % (37.0-47.0); HEMOGLOBIN 13.1 g/dl (12.5-16.0); LYMPH # 3.1 (1.2-3.4); LYMPH % 29.5 % (20.0-51.0); MEAN CELL VOLUME 78 fl (80.0-100.0); MEAN CORPUSCULAR HEMOGLOBIN 26 pg (27.0-31.0); MEAN CORPUSCULAR HGB CONC 33 g/dl (33.0-37.0); MEAN PLATELET VOLUME 10.8 fl (7.4-10.4); MONO # 0.8 (0.1-0.6); MONO % 7.4 % (1.7-9.3); PLATELET COUNT 332 K/mm3 (130-400); RED BLOOD COUNT 5.09 M/mm3 (4.10-5.30); REDCELL DISTRIBUTION WIDTH-CV 13.5 % (11.5-14.5)
[2019-08-22] MEDS ORDERED: LAMICTAL 100MG100 MG PO (23:03)
[2019-08-22] MEDS ORDERED: LEVEMIR100 U/ML SQ (23:03)
[2019-08-22 23:09] LABS: ACETONE,SERUM NEGATIVE
[2019-08-22 23:11] LABS: ALANINE AMINOTRANSFERASE 29 U/L (9-52); ALBUMIN 4.3 gm/dL (3.5-5.0); ALKALINE PHOSPHATASE 113 U/L (50-136); ANION GAP 11 mmol/L (7-16); AST,SGOT 26 U/L (15-37); BILIRUBIN,TOTAL 0.4 mg/dL (0.0-1.0); BLOOD UREA NITROGEN 23 mg/dL (7-17); CALCIUM 9.9 mg/dL (8.4-10.2); CARBON DIOXIDE 27 mmol/L (22-30); CHLORIDE 97 mmol/L (98-107); CREATININE, serum 1.24 (0.52-1.25); MAGNESIUM 1.3 mg/dL (1.6-2.3); POTASSIUM 3.8 mmol/L (3.4-5.0); SODIUM 135 mmol/L (137-145); TOTAL PROTEIN 7.6 gm/dL (6.4-8.2)
[2019-08-22 23:13] LABS: GLUCOSE 415 mg/dL (74-106)
[2019-08-23 00:26] LABS: COLLECTION METHOD CLEAN CATCH
[2019-08-23 00:33] LABS: MUCOUS Present /lpf; PH 5 (5-8); URINE APPEARANCE Clear; URINE BACTERIA None Seen /hpf; URINE BILIRUBIN Negative (NEGATIVE); URINE BLOOD Negative (NEGATIVE); URINE COLOR Yellow; URINE GLUCOSE 3+ (NEGATIVE); URINE KETONE Negative (NEGATIVE); URINE LEUKOCYTE ESTERASE Negative (NEGATIVE); URINE NITRATE Negative (NEGATIVE); URINE PROTEIN(semi-quant) 1+ (NEGATIVE); URINE RBC 0-2 /hpf; URINE UROBILINOGEN Negative (NEGATIVE)
[2019-08-23] MEDS ORDERED: CEPHALEXIN500 M1 PO (02:37)
[2019-08-23 03:12] VITALS: BP 152/94; PULSE 102
== END 2019-08-23 03:33 | disposition home or self-care (01) ==
LOC: COL.ER 22:20
PROVIDERS: Physician Assistant
DX: S61.217A Laceration without foreign body of left little finger without damage to nail, initial encounter (principal); E11.65 Type 2 diabetes mellitus with hyperglycemia; Z79.4 Long term (current) use of insulin; Z79.82 Long term (current) use of aspirin; X58.XXXA Exposure to other specified factors, initial encounter
CPT/HCPCS: J1815; J7030

== ENCOUNTER 2019-08-26 19:14 | Emergency (ER) | payer SELFPAY ==
[~2019-08-26] VITALS: Ht 167.6 cm; Wt 113.6 kg
[2019-08-26 19:29] VITALS: TEMP 98.5
[2019-08-26 19:55] LABS: BASO % 0.4 % (0.0-2.0); EOS # 0.3 (0.0-0.7); EOS % 2.9 % (0-4.0); GRAN # 5.6 (1.4-6.5); HEMATOCRIT 41.9 % (37.0-47.0); HEMOGLOBIN 13.9 g/dl (12.5-16.0); LYMPH # 3.1 (1.2-3.4); LYMPH % 32.3 % (20.0-51.0); MEAN CELL VOLUME 79 fl (80.0-100.0); MEAN CORPUSCULAR HEMOGLOBIN 26 pg (27.0-31.0); MEAN CORPUSCULAR HGB CONC 33 g/dl (33.0-37.0); MEAN PLATELET VOLUME 10.9 fl (7.4-10.4); MONO # 0.5 (0.1-0.6); MONO % 5.1 % (1.7-9.3); PLATELET COUNT 365 K/mm3 (130-400); RED BLOOD COUNT 5.29 M/mm3 (4.10-5.30); REDCELL DISTRIBUTION WIDTH-CV 13.6 % (11.5-14.5)
[2019-08-26 20:13] LABS: ALANINE AMINOTRANSFERASE 22 U/L (9-52); ALBUMIN 4.3 gm/dL (3.5-5.0); ALKALINE PHOSPHATASE 114 U/L (50-136); ANION GAP 11 mmol/L (7-16); AST,SGOT 22 U/L (15-37); BILIRUBIN,TOTAL 0.3 mg/dL (0.0-1.0); BLOOD UREA NITROGEN 14 mg/dL (7-17); CALCIUM 9.6 mg/dL (8.4-10.2); CARBON DIOXIDE 27 mmol/L (22-30); CHLORIDE 100 mmol/L (98-107); LIPASE 200 U/L (23-300); POTASSIUM 4.4 mmol/L (3.4-5.0); SODIUM 138 mmol/L (137-145); TOTAL PROTEIN 7.3 gm/dL (6.4-8.2)
[2019-08-26 20:14] LABS: GLUCOSE 466 mg/dL (74-106)
[2019-08-26 20:26] LABS: ACETONE,SERUM NEGATIVE
[2019-08-26 20:27] LABS: COLLECTION METHOD CLEAN CATCH
[2019-08-26 20:33] LABS: MUCOUS Present /lpf; PH 5 (5-8); URINE APPEARANCE Hazy; URINE BACTERIA None Seen /hpf; URINE BILIRUBIN Negative (NEGATIVE); URINE BLOOD Negative (NEGATIVE); URINE COLOR Yellow; URINE GLUCOSE 3+ (NEGATIVE); URINE KETONE Negative (NEGATIVE); URINE LEUKOCYTE ESTERASE Negative (NEGATIVE); URINE NITRATE Negative (NEGATIVE); URINE PROTEIN(semi-quant) 2+ (NEGATIVE); URINE RBC 0-2 /hpf; URINE UROBILINOGEN Negative (NEGATIVE)
[2019-08-26] MEDS ORDERED: ZOFRAN ODT4 MG PO (21:35)
[2019-08-26 21:56] VITALS: BP 138/80; PULSE 98
== END 2019-08-26 21:58 | disposition home or self-care (01) ==
LOC: COL.ER 19:14
PROVIDERS: Emergency Medicine
DX: E11.65 Type 2 diabetes mellitus with hyperglycemia (principal); J44.9 Chronic obstructive pulmonary disease, unspecified; K50.90 Crohn's disease, unspecified, without complications; M79.7 Fibromyalgia; E66.9 Obesity, unspecified; Z68.41 Body mass index [BMI] 40.0-44.9, adult; Z98.890 Other specified postprocedural states; Z90.89 Acquired absence of other organs; Z90.710 Acquired absence of both cervix and uterus
CPT/HCPCS: J1815; J2405; J7030

== ENCOUNTER 2019-09-18 20:35 | Emergency (ER) | payer SELFPAY ==
[~2019-09-18] VITALS: Ht 167.6 cm; Wt 113.6 kg
[~2019-09-18 20:35] MED LIST changes: +ZOFRAN ODT4 MG PO
[2019-09-18 20:51] VITALS: TEMP 97.3
[2019-09-18 21:16] LABS: COLLECTION METHOD CLEAN CATCH
[2019-09-18 21:27] LABS: MUCOUS Present /lpf; PH 5 (5-8); SQUAMOUS EPITHELIAL 0-2 /hpf; URINE APPEARANCE Clear; URINE BACTERIA None Seen /hpf; URINE BILIRUBIN Negative (NEGATIVE); URINE BLOOD Negative (NEGATIVE); URINE COLOR Yellow; URINE GLUCOSE 3+ (NEGATIVE); URINE KETONE Negative (NEGATIVE); URINE LEUKOCYTE ESTERASE Negative (NEGATIVE); URINE NITRATE Negative (NEGATIVE); URINE PROTEIN(semi-quant) 2+ (NEGATIVE); URINE RBC None Seen /hpf; URINE UROBILINOGEN Negative (NEGATIVE)
[2019-09-18 21:30] LABS: ACETONE,SERUM NEGATIVE
[2019-09-18 21:33] LABS: BASO % 0.4 % (0.0-2.0); EOS # 0.3 (0.0-0.7); EOS % 2.7 % (0-4.0); GRAN # 6.7 (1.4-6.5); GRAN % 63.9 % (42.2-75.2); HEMATOCRIT 42.3 % (37.0-47.0); HEMOGLOBIN 13.7 g/dl (12.5-16.0); LYMPH # 2.8 (1.2-3.4); LYMPH % 26.8 % (20.0-51.0); MEAN CELL VOLUME 81 fl (80.0-100.0); MEAN CORPUSCULAR HEMOGLOBIN 26 pg (27.0-31.0); MEAN CORPUSCULAR HGB CONC 32 g/dl (33.0-37.0); MONO # 0.6 (0.1-0.6); MONO % 5.8 % (1.7-9.3); PLATELET COUNT 317 K/mm3 (130-400); RED BLOOD COUNT 5.25 M/mm3 (4.10-5.30); REDCELL DISTRIBUTION WIDTH-CV 13.5 % (11.5-14.5)
[2019-09-18 21:37] LABS: ALANINE AMINOTRANSFERASE 25 U/L (9-52); ALBUMIN 4.3 gm/dL (3.5-5.0); ALKALINE PHOSPHATASE 120 U/L (50-136); ANION GAP 12 mmol/L (7-16); AST,SGOT 41 U/L (15-37); BILIRUBIN,TOTAL 0.4 mg/dL (0.0-1.0); BLOOD UREA NITROGEN 15 mg/dL (7-17); CALCIUM 9.4 mg/dL (8.4-10.2); CARBON DIOXIDE 25 mmol/L (22-30); CHLORIDE 99 mmol/L (98-107); CREATININE, serum 0.61 (0.52-1.25); POTASSIUM 4.2 mmol/L (3.4-5.0); SODIUM 137 mmol/L (137-145); TOTAL PROTEIN 7.6 gm/dL (6.4-8.2)
[2019-09-18 21:42] LABS: GLUCOSE 504 mg/dL (74-106)
[2019-09-18] MEDS ORDERED: NOVOLOG 100U100 U/M1 SQ (22:54)
[2019-09-19 00:34] VITALS: BP 152/83; PULSE 86
--- NOTE | 2019-09-19 16:07 | NUR ---
ASHLEY recieved referral for client that has departed from hospital in need of insulin. ASHLEY called phone number . ASHLEY unable to leave message. Awaiting call back from client to assist or give resources to fill prescription of insulin. Nothing Follows.
== END 2019-09-19 00:34 | disposition home or self-care (01) ==
LOC: COL.ER 20:35
PROVIDERS: Emergency Medicine
DX: E11.65 Type 2 diabetes mellitus with hyperglycemia (principal); J44.9 Chronic obstructive pulmonary disease, unspecified; E66.9 Obesity, unspecified; M79.7 Fibromyalgia; Z90.710 Acquired absence of both cervix and uterus; Z87.891 Personal history of nicotine dependence; Z79.82 Long term (current) use of aspirin; Z79.4 Long term (current) use of insulin
CPT/HCPCS: J1815; J2405; J7030

== ENCOUNTER 2020-07-21 16:25 | Emergency (ER) | payer SELFPAY ==
[~2020-07-21] VITALS: Ht 167.6 cm; Wt 113.6 kg
[~2020-07-21 16:25] MED LIST changes: +NOVOLOG 100U100 U/M1 SQ
[2020-07-21 16:48] VITALS: TEMP 98.7
[2020-07-21 18:19] LABS: COLLECTION METHOD CLEAN CATCH
[2020-07-21 18:29] LABS: MUCOUS Present /lpf; PH 5 (5-8); URINE APPEARANCE Clear; URINE BACTERIA Rare /hpf; URINE BILIRUBIN Negative (NEGATIVE); URINE BLOOD Negative (NEGATIVE); URINE COLOR Yellow; URINE GLUCOSE Negative (NEGATIVE); URINE KETONE Negative (NEGATIVE); URINE LEUKOCYTE ESTERASE Negative (NEGATIVE); URINE NITRATE Negative (NEGATIVE); URINE PROTEIN(semi-quant) 2+ (NEGATIVE); URINE RBC 0-2 /hpf; URINE UROBILINOGEN Negative (NEGATIVE)
[2020-07-21 18:32] LABS: BASO # 0.1 (0.0-0.2); BASO % 0.4 % (0.0-2.0); EOS # 0.3 (0.0-0.7); EOS % 2.8 % (0-4.0); GRAN # 7.2 (1.4-6.5); GRAN % 61.4 % (42.2-75.2); HEMATOCRIT 42.3 % (37.0-47.0); HEMOGLOBIN 13.8 g/dl (12.5-16.0); LYMPH # 3.3 (1.2-3.4); MEAN CELL VOLUME 85 fl (80.0-100.0); MEAN CORPUSCULAR HEMOGLOBIN 28 pg (27.0-31.0); MEAN CORPUSCULAR HGB CONC 33 g/dl (33.0-37.0); MEAN PLATELET VOLUME 10.5 fl (7.4-10.4); MONO # 0.8 (0.1-0.6); MONO % 7.1 % (1.7-9.3); PLATELET COUNT 333 K/mm3 (130-400); REDCELL DISTRIBUTION WIDTH-CV 13.4 % (11.5-14.5)
[2020-07-21 18:44] LABS: ALANINE AMINOTRANSFERASE 32 U/L (4-34); ALBUMIN 4.3 gm/dL (3.5-5.0); ALKALINE PHOSPHATASE 95 U/L (50-136); ANION GAP 8 mmol/L (7-16); AST,SGOT 38 U/L (15-37); BILIRUBIN,TOTAL 0.4 mg/dL (0.0-1.0); BLOOD UREA NITROGEN 16 mg/dL (7-17); C-REACTIVE PROTEIN 2.2 mg/dL (0.0-0.9); CARBON DIOXIDE 29 mmol/L (22-30); CHLORIDE 102 mmol/L (98-107); CREATININE, serum 0.93 (0.52-1.25); GLUCOSE 215 mg/dL (74-106); POTASSIUM 4.3 mmol/L (3.4-5.0); SODIUM 140 mmol/L (137-145); TOTAL PROTEIN 7.8 gm/dL (6.4-8.2)
[2020-07-21 18:55] LABS: ACETONE,SERUM NEGATIVE
[2020-07-21] MEDS ORDERED: NORCO 325 MG-51 TAB PO (20:58)
[2020-07-21] MEDS ORDERED: MEDROL 4MG DOSPA4 MG PO (20:58)
[2020-07-21 21:10] VITALS: BP 139/85; PULSE 79
== END 2020-07-21 21:11 | disposition home or self-care (01) ==
LOC: COL.ER 16:25
PROVIDERS: Emergency Medicine
DX: K50.90 Crohn's disease, unspecified, without complications (principal); E11.9 Type 2 diabetes mellitus without complications; J44.9 Chronic obstructive pulmonary disease, unspecified; Z90.710 Acquired absence of both cervix and uterus; Z90.49 Acquired absence of other specified parts of digestive tract; Z88.2 Allergy status to sulfonamides; Z88.1 Allergy status to other antibiotic agents; Z88.3 Allergy status to other anti-infective agents; Z88.8 Allergy status to other drugs, medicaments and biological substances; Z79.4 Long term (current) use of insulin; Z79.82 Long term (current) use of aspirin
CPT/HCPCS: J2405; J3010; J7030; J7512; Q9967

== ENCOUNTER 2020-08-20 14:40 | Emergency (ER) | payer SELFPAY ==
[~2020-08-20] VITALS: Ht 167.6 cm; Wt 113.6 kg
[~2020-08-20 14:40] MED LIST changes: +MEDROL 4MG DOSPA4 MG PO
[2020-08-20] MEDS ORDERED: ZOFRAN 4MG T4 MG/TAB PO (15:33)
[2020-08-20 15:55] VITALS: BP 146/87; PULSE 110; TEMP 99.8
== END 2020-08-20 16:00 | disposition home or self-care (01) ==
LOC: COL.ER 14:40
DX: B34.9 Viral infection, unspecified (principal); I10 Essential (primary) hypertension; E11.9 Type 2 diabetes mellitus without complications; F32.9 Major depressive disorder, single episode, unspecified; J45.909 Unspecified asthma, uncomplicated; Z20.828 Contact with and (suspected) exposure to other viral communicable diseases; Z90.49 Acquired absence of other specified parts of digestive tract; Z90.710 Acquired absence of both cervix and uterus; Z88.1 Allergy status to other antibiotic agents; Z88.2 Allergy status to sulfonamides; Z88.8 Allergy status to other drugs, medicaments and biological substances; Z79.4 Long term (current) use of insulin; Z79.82 Long term (current) use of aspirin

== ENCOUNTER 2020-11-23 22:00 | Emergency (ER) | payer OTHER ==
[~2020-11-23] VITALS: Ht 167.6 cm; Wt 109.1 kg
[2020-11-23 22:03] VITALS: BP 166/87; TEMP 98
[2020-11-23] MEDS ORDERED: CLEOCIN HCL300 MG PO (22:37)
[2020-11-23 22:52] VITALS: PULSE 95
[2021-01-12] MEDS ORDERED: PRINCIPEN500 MG PO (10:41)
[2021-01-16] MEDS ORDERED: PRINCIPEN500 MG PO (14:03)
[2021-01-16] MEDS ORDERED: LIPITOR20 MG PO (14:06)
[2021-01-16] MEDS ORDERED: NEURONTIN400 MG/CAP PO (14:07)
[2021-01-16] MEDS ORDERED: LOPRESSOR 225 MG/TAB PO (14:08)
[2021-01-16] MEDS ORDERED: PRIL40 PO (14:09)
== END 2020-11-23 22:48 | disposition home or self-care (01) ==
LOC: COL.ER 22:00
DX: K08.89 Other specified disorders of teeth and supporting structures (principal); I10 Essential (primary) hypertension; M79.7 Fibromyalgia; E11.9 Type 2 diabetes mellitus without complications; F32.9 Major depressive disorder, single episode, unspecified; Z88.2 Allergy status to sulfonamides; Z88.1 Allergy status to other antibiotic agents; Z88.8 Allergy status to other drugs, medicaments and biological substances; Z87.891 Personal history of nicotine dependence; Z79.4 Long term (current) use of insulin; Z79.82 Long term (current) use of aspirin; Z79.51 Long term (current) use of inhaled steroids
CPT/HCPCS: J1885

== ENCOUNTER 2021-01-10 18:18 | Emergency (ER) | payer OTHER ==
[~2021-01-10] VITALS: Ht 167.6 cm; Wt 113.6 kg
[~2021-01-10 18:18] MED LIST changes: +CLEOCIN HCL300 MG PO
[2021-01-10 20:03] LABS: COLLECTION METHOD CLEAN CATCH
[2021-01-10 20:06] LABS: BASO # 0.1 (0.0-0.2); BASO % 0.3 % (0.0-2.0); EOS # 0.3 (0.0-0.7); EOS % 1.9 % (0-4.0); GRAN # 9.5 (1.4-6.5); GRAN % 65.3 % (42.2-75.2); HEMATOCRIT 44.6 % (37.0-47.0); HEMOGLOBIN 14.5 g/dl (12.5-16.0); LYMPH # 3.5 (1.2-3.4); LYMPH % 24.2 % (20.0-51.0); MEAN CELL VOLUME 81 fl (80.0-100.0); MEAN CORPUSCULAR HEMOGLOBIN 26 pg (27.0-31.0); MEAN CORPUSCULAR HGB CONC 33 g/dl (33.0-37.0); MEAN PLATELET VOLUME 9.6 fl (7.4-10.4); MONO # 1.1 (0.1-0.6); MONO % 7.7 % (1.7-9.3); PLATELET COUNT 443 K/mm3 (130-400); RED BLOOD COUNT 5.51 M/mm3 (4.10-5.30); REDCELL DISTRIBUTION WIDTH-CV 14.4 % (11.5-14.5)
[2021-01-10 20:12] LABS: MUCOUS Present /lpf; PH 5 (5-8); SQUAMOUS EPITHELIAL 0-2 /hpf; URINE APPEARANCE Hazy; URINE BACTERIA Rare /hpf; URINE BILIRUBIN Negative (NEGATIVE); URINE BLOOD Negative (NEGATIVE); URINE COLOR Yellow; URINE GLUCOSE 3+ (NEGATIVE); URINE KETONE Negative (NEGATIVE); URINE LEUKOCYTE ESTERASE Trace (NEGATIVE); URINE NITRATE Negative (NEGATIVE); URINE PROTEIN(semi-quant) 2+ (NEGATIVE); URINE UROBILINOGEN Negative (NEGATIVE)
[2021-01-10 20:19] LABS: ALBUMIN 4.7 gm/dL (3.5-5.0); BILIRUBIN,TOTAL 0.3 mg/dL (0.0-1.0); CALCIUM 9.7 mg/dL (8.4-10.2); CREATININE, serum 0.69 (0.52-1.25); POTASSIUM 4.4 mmol/L (3.4-5.0); TOTAL PROTEIN 8.7 gm/dL (6.4-8.2)
[2021-01-10 23:45] VITALS: TEMP 98.4
[2021-01-10] MEDS ORDERED: NORCO 325 MG-51 TAB PO (23:45)
[2021-01-10 23:48] VITALS: BP 141/90; PULSE 112
[2021-01-12] MEDS ORDERED: PRINCIPEN500 MG PO (10:41)
[2021-01-16] MEDS ORDERED: PRINCIPEN500 MG PO (14:03)
[2021-01-16] MEDS ORDERED: LIPITOR20 MG PO (14:06)
[2021-01-16] MEDS ORDERED: NEURONTIN400 MG/CAP PO (14:07)
[2021-01-16] MEDS ORDERED: LOPRESSOR 225 MG/TAB PO (14:08)
[2021-01-16] MEDS ORDERED: PRIL40 PO (14:09)
== END 2021-01-11 00:14 | disposition home or self-care (01) ==
LOC: COL.ER 18:18
PROVIDERS: Nurse Practitioner
DX: K66.8 Other specified disorders of peritoneum (principal); Z90.49 Acquired absence of other specified parts of digestive tract; Z90.710 Acquired absence of both cervix and uterus; Z88.2 Allergy status to sulfonamides; Z88.1 Allergy status to other antibiotic agents; Z88.8 Allergy status to other drugs, medicaments and biological substances; Z87.891 Personal history of nicotine dependence; Z79.4 Long term (current) use of insulin; Z79.82 Long term (current) use of aspirin; Z79.51 Long term (current) use of inhaled steroids
CPT/HCPCS: J2405; J3010; J7030; Q9967

== ENCOUNTER → 2021-01-19 | Outpatient (CLI) | payer OTHER ==
[2021-01-19] VITALS (10 sets, daily range): BP systolic 135–173; BP diastolic 51–87; PULSE 94–107
[~2021-01-19] VITALS: Ht 167.6 cm; Wt 122.7 kg
[~2021-01-19] MED LIST changes: +DECADRON6 MG PO; +FEMARA PO; +MOTRIN 600600 MG/TAB PO; +PRINCIPEN500 MG PO; +TYLENOL 325MG325 MG PO
[2021-01-19 13:05] LABS: INR 1.1 (0.8-3.0); PROTHROMBIN TIME 12.6 SECONDS (9.7-12.8)
--- NOTE | 2021-01-19 13:30 | NUR ---
PT TAKEN TO CT AND PLACED ON TABLE. MONITORING EQUIPMENT PLACED
== END ==
LOC: COL.RAD 12:00
PROVIDERS: Radiology Diagnostic Radiology
DX: K75.0 Abscess of liver (principal)

== ENCOUNTER 2021-02-03 12:26 | Emergency (ER) | payer OTHER ==
[~2021-02-03] VITALS: Ht 167.6 cm; Wt 113.6 kg
[~2021-02-03 12:26] MED LIST changes: -DECADRON6 MG PO; -FEMARA PO; -MOTRIN 600600 MG/TAB PO; -TYLENOL 325MG325 MG PO
[2021-02-03 12:50] VITALS: BP 154/85; TEMP 98.7
[2021-02-03 13:14] LABS: BASO % 0.3 % (0.0-2.0); EOS # 0.3 (0.0-0.7); EOS % 2.4 % (0-4.0); GRAN # 8.3 (1.4-6.5); GRAN % 70.3 % (42.2-75.2); HEMOGLOBIN 13.3 g/dl (12.5-16.0); LYMPH # 2.5 (1.2-3.4); LYMPH % 21.3 % (20.0-51.0); MEAN CELL VOLUME 81 fl (80.0-100.0); MEAN CORPUSCULAR HEMOGLOBIN 26 pg (27.0-31.0); MEAN CORPUSCULAR HGB CONC 32 g/dl (33.0-37.0); MEAN PLATELET VOLUME 9.5 fl (7.4-10.4); MONO # 0.6 (0.1-0.6); PLATELET COUNT 409 K/mm3 (130-400); RED BLOOD COUNT 5.09 M/mm3 (4.10-5.30); REDCELL DISTRIBUTION WIDTH-CV 14.2 % (11.5-14.5)
[2021-02-03 13:21] LABS: INR 1.1 (0.8-3.0); PROTHROMBIN TIME 12.5 SECONDS (9.7-12.8)
[2021-02-03 13:58] LABS: ALBUMIN 4.5 gm/dL (3.5-5.0); BILIRUBIN,TOTAL 0.5 mg/dL (0.0-1.0); CALCIUM 10.9 mg/dL (8.4-10.2); CREATININE, serum 0.71 (0.52-1.25); POTASSIUM 4.1 mmol/L (3.4-5.0); TOTAL PROTEIN 8.4 gm/dL (6.4-8.2)
[2021-02-03 13:59] LABS: COLLECTION METHOD CLEAN CATCH
[2021-02-03 14:09] LABS: MUCOUS Present /lpf; PH 5 (5-8); URINE APPEARANCE Hazy; URINE BACTERIA Rare /hpf; URINE BILIRUBIN Negative (NEGATIVE); URINE BLOOD Negative (NEGATIVE); URINE COLOR Amber; URINE GLUCOSE Negative (NEGATIVE); URINE KETONE Negative (NEGATIVE); URINE LEUKOCYTE ESTERASE Negative (NEGATIVE); URINE NITRATE Negative (NEGATIVE); URINE PROTEIN(semi-quant) 2+ (NEGATIVE); URINE RBC 0-2 /hpf; URINE UROBILINOGEN Negative (NEGATIVE)
[2021-02-03 15:48] VITALS: PULSE 87
== END 2021-02-03 15:56 | disposition home or self-care (01) ==
LOC: COL.ER 12:26
PROVIDERS: Family Medicine
DX: H53.2 Diplopia (principal); M79.7 Fibromyalgia; E11.40 Type 2 diabetes mellitus with diabetic neuropathy, unspecified; J44.9 Chronic obstructive pulmonary disease, unspecified; Z79.4 Long term (current) use of insulin; Z79.51 Long term (current) use of inhaled steroids
CPT/HCPCS: J2250; J7120

== ENCOUNTER 2021-05-18 20:10 | Emergency (ER) | payer OTHER ==
[~2021-05-18] VITALS: Ht 167.6 cm; Wt 113.6 kg
[2021-05-18 20:27] VITALS: TEMP 98.9
[2021-05-18 23:00] VITALS: BP 151/64; PULSE 87
[2021-05-18] MEDS ORDERED: NORCO 325 MG-51 TAB PO (23:11)
[2021-05-18] MEDS ORDERED: AMOXICILLIN 50500 MG PO (23:11)
== END 2021-05-18 23:20 | disposition home or self-care (01) ==
LOC: COL.ER 20:10
DX: K02.9 Dental caries, unspecified (principal); E11.9 Type 2 diabetes mellitus without complications; I10 Essential (primary) hypertension; E78.5 Hyperlipidemia, unspecified; F17.200 Nicotine dependence, unspecified, uncomplicated; Z88.1 Allergy status to other antibiotic agents; Z79.4 Long term (current) use of insulin; Z79.899 Other long term (current) drug therapy

== ENCOUNTER 2021-05-28 05:51 | Inpatient (IN) | payer OTHER ==
[~2021-05-28] VITALS: Ht 167.6 cm; Wt 116.7 kg
[2021-05-28] VITALS (109 sets, daily range): BP systolic 92–133; BP diastolic 49–64; PULSE 84–90; TEMP 98.2–99.1; O2SAT 88–94
[2021-05-28 07:06] LABS: BASO % 0.1 % (0.0-2.0); GRAN # 5.7 (1.4-6.5); HEMATOCRIT 38.3 % (37.0-47.0); HEMOGLOBIN 12.7 g/dl (12.5-16.0); LYMPH # 1.4 (1.2-3.4); LYMPH % 18.1 % (20.0-51.0); MEAN CELL VOLUME 80 fl (80.0-100.0); MEAN CORPUSCULAR HEMOGLOBIN 26 pg (27.0-31.0); MEAN CORPUSCULAR HGB CONC 33 g/dl (33.0-37.0); MEAN PLATELET VOLUME 10.8 fl (7.4-10.4); MONO # 0.5 (0.1-0.6); MONO % 6.9 % (1.7-9.3); PLATELET COUNT 303 K/mm3 (130-400); RED BLOOD COUNT 4.81 M/mm3 (4.10-5.30); REDCELL DISTRIBUTION WIDTH-CV 14.1 % (11.5-14.5)
[2021-05-28 07:15] LABS: INR 1.1 (0.8-3.0); PROTHROMBIN TIME 12.4 SECONDS (9.7-12.8)
[2021-05-28 07:18] LABS: PARTIAL THROMBOPLASTIN TIME 28.1 SECONDS (26.0-37.0)
[2021-05-28 07:30] LABS: ALANINE AMINOTRANSFERASE 23 U/L (4-34); ALKALINE PHOSPHATASE 90 U/L (50-136); ANION GAP 11 mmol/L (7-16); AST,SGOT 33 U/L (15-37); BILIRUBIN,TOTAL 0.4 mg/dL (0.0-1.0); BLOOD UREA NITROGEN 15 mg/dL (7-17); CALCIUM 8.9 mg/dL (8.4-10.2); CARBON DIOXIDE 27 mmol/L (22-30); CHLORIDE 95 mmol/L (98-107); CREATININE, serum 0.74 (0.52-1.25); POTASSIUM 4.5 mmol/L (3.4-5.0); SODIUM 133 mmol/L (137-145); TOTAL PROTEIN 7.5 gm/dL (6.4-8.2)
[2021-05-28 07:36] LABS: GLUCOSE 523 mg/dL (74-106)
[2021-05-28 07:44] LABS: TROPONIN-I < 0.012 ng/mL (0.000-0.035)
[2021-05-28] MEDS ORDERED: FEMARA PO (09:50)
[2021-05-28] MEDS ORDERED: TYLENOL 325MG325 MG PO (09:51)
[2021-05-28] MEDS ORDERED: MOTRIN 600600 MG/TAB PO (09:52)
--- NOTE | 2021-05-28 17:28 | NUR ---
Patient had an uneventful day. Resting throughout the day. A&Ox4. VSS 4L NC O2, no reported SOB. IV CDI. Denies pain and discomfort. Droplet/contact precautions in place. Call light within reach
--- NOTE | 2021-05-28 19:30 | NUR ---
Bedside shift report rec'd, patient oriented to room. Insulin started to R hand per protocol. BS 565. Lungs CTA. Heart RRR. No swelling present. Pt currently denies any pain, SOB or concerns. Covid precautions in place.
[2021-05-29] VITALS (474 sets, daily range): BP systolic 122–138; BP diastolic 66–75; PULSE 75–90; TEMP 98.1–98.6; O2SAT 83–97
[2021-05-29 01:27] LABS: CALCIUM 8.9 mg/dL (8.4-10.2); CREATININE, serum 1.25 (0.52-1.25)
[2021-05-29 04:51] LABS: HEMOGLOBIN 12.1 g/dl (12.5-16.0); MEAN CELL VOLUME 80 fl (80.0-100.0); MEAN CORPUSCULAR HEMOGLOBIN 26 pg (27.0-31.0); MEAN CORPUSCULAR HGB CONC 33 g/dl (33.0-37.0); MEAN PLATELET VOLUME 11.1 fl (7.4-10.4); PLATELET COUNT 356 K/mm3 (130-400); RED BLOOD COUNT 4.63 M/mm3 (4.10-5.30)
[2021-05-29 04:54] LABS: HEMATOCRIT 36.8 % (37.0-47.0)
[2021-05-29 05:15] LABS: BAND 1 % (0-10); BASOPHIL 1 % (0-2); LYMPHOCYTE 18 % (20.0-51.0); METAMYELOCYTE 2 % (0-0); MICROCYTOSIS 1+; NEUTROPHILS 67 % (42.0-75.2); PLATELET ESTIMATE NORMAL (NORMAL)
[2021-05-29 05:16] LABS: ANISOCYTOSIS 1+
[2021-05-29 05:52] LABS: CALCIUM 9.1 mg/dL (8.4-10.2); CREATININE, serum 1.13 (0.52-1.25); MAGNESIUM 1.6 mg/dL (1.6-2.3); POTASSIUM 4.1 mmol/L (3.4-5.0)
--- NOTE | 2021-05-29 07:15 | NUR ---
RECEIVED REPORT FROM MAHENDRA BURDEN. PT RESTING IN BED ON 5L VIA NC. CALL LIGHT WITHIN REACH. VSS. DENIES ANY NEEDS AT THIS TIME.
--- NOTE | 2021-05-29 10:36 | NUR ---
Process Checker contacted patient by phone to discuss discharge planning as she is COVID positive. Patient lives alone in [place] and reports her mother, Bree lives next door to her. Patient sees Ekaterina Wan APRN at [facility] for primary care but states she plans to change providers at the beginning of the year as she will have a different prescription plan starting in September. Patient states she plans to stay with current provider for now. Patient obtains medications from [facility] and reports she uses a cane for ambulation. Patient is not normally on oxygen but is currently requiring 3 liters. Patient does not have Advance Directives. Patient is not and has three adult children: Oneida Sosa (Age 39), London Sosa (Age 36), and Ramon Sosa (Age 21). Patient advised that her oldest child, Oneida is "mentally slow". Discharge Plan: Home
--- NOTE | 2021-05-29 14:02 | NUR ---
SPOKE TO DR KESSLER ABOUT PT'S FSBS FOR LUNCH TIME FRAME AND HOW PT STARTED ON STEROIDS TODAY. NEW ORDERS RECEIVED. SEE MAR.
--- NOTE | 2021-05-29 16:36 | NUR ---
REPORT GIVEN TO MAHENDRA BURDEN ON MEDICAL. PT TO TRANSFER VIA ON 4L VIA VA TO 303. ALL PERSONAL BELONGINGS SENT WITH PT.
--- NOTE | 2021-05-29 20:12 | NUR ---
pt blood glucose 440, called DANIELA Almonte to notify of elevated blood glucose.
--- NOTE | 2021-05-29 20:32 | NUR ---
Upon entry, pt states that she took shower herself early this afternoon. Pt states no one had been in to help her so she did it herself. Pt is independent in room. This Rn asked if pt was educated to wrap IV, pt denied. Pt stated she did her best not to get IV wet. Pt educated to call before next shower to wrap IV site.
--- NOTE | 2021-05-29 22:15 | NUR ---
PT BLOOD GLUCOSE RECHECKED AT THIS TIME, BG 454. DANIELA GARCIA NOTIFIED OF ELEVATED BLOOD GLUCOSE. RECEIVED INSTRUCTIONS FOR IV INSULIN AND RECHECK AT 0100.
--- NOTE | 2021-05-29 22:17 | NUR ---
PT ALERT AND ORIENTED IN ROOM. PT STATES HAVING HEADACHE 3/10, BUT DENIES NEED FOR MEDICATIONS. PT LUNG SOUNDS DIMINISHED IN BASES BILATERALLY. PT HAS SCAR ON ABDOMEN FROM PRIOR BIOPSY WITH CANCER DIAGNOSIS. PT LAP SITES WELL APPROXIMATED AND FULLY HEALED. PT STATES ABDOMEN TENDER IN AREA OF SCAR TISSUE. ACTIVE BOWEL SOUNDS IN ALL FOUR QUADRANTS. PT GIVEN WATER AND UPDATED ON NEW DIET ORDERS FOR MORNING. PT DENIES OTHER NEEDS AT THIS TIME. CALL LIGHT WITHIN REACH.
[2021-05-30 00:48] VITALS: BP 122/68; PULSE 73; TEMP 98.4
--- NOTE | 2021-05-30 01:21 | NUR ---
DANIELA GARCIA NOTIFIED OF SUSTAINED ELEVATED BLOOD GLUCOSE FOR 0100 CHECK. RECEIVED ORDERS FOR ACCUCHECKS EVERY 4 HOURS AND HIGH-SLIDING SCALE.
--- NOTE | 2021-05-30 01:37 | NUR ---
DURING 0000 VITAL SIGNS, UPON ENTRY PT HAD NASAL CANNULA MISPLACED. AFTER CANNULA POSITIONED CORRECTLY, SPO2 SATURATIONS IN 89-90%. O2 TITRATED TO 5L NC. PT SPO2 93% ON 5L.
[2021-05-30 04:20] VITALS: BP 131/66; PULSE 80; TEMP 98
--- NOTE | 2021-05-30 06:27 | NUR ---
PT CONTINUING ON PLAN OF CARE. PT VITAL SIGNS REMAINED STABLE THIS SHIFT, SPO2 SATURATIONS MAINTAINED ABOVE 90%. PT DENIED PAIN THIS SHIFT. PT ABLE TO AMBULATE INDEPENDENTLY. PT BLOOD GLUCOSE ELEVATED, MANAGED WITH IV AND SUBCUTANEOUS INSULIN PER ORDERS. THIS RN COMMUNICATED ELEVATED VALUES WITH DANIELA GARCIA THROUGHOUT THE NIGHT.
[2021-05-30 07:07] LABS: HEMOGLOBIN 11.4 g/dl (12.5-16.0); MEAN CELL VOLUME 80 fl (80.0-100.0); MEAN CORPUSCULAR HEMOGLOBIN 26 pg (27.0-31.0); MEAN CORPUSCULAR HGB CONC 33 g/dl (33.0-37.0); MEAN PLATELET VOLUME 10.3 fl (7.4-10.4); PLATELET COUNT 420 K/mm3 (130-400); RED BLOOD COUNT 4.34 M/mm3 (4.10-5.30); REDCELL DISTRIBUTION WIDTH-CV 14.1 % (11.5-14.5)
[2021-05-30 07:15] LABS: HEMATOCRIT 34.7 % (37.0-47.0)
[2021-05-30 07:25] LABS: CALCIUM 8.3 mg/dL (8.4-10.2); CREATININE, serum 0.95 (0.52-1.25); POTASSIUM 4.3 mmol/L (3.4-5.0)
--- NOTE | 2021-05-30 08:00 | NUR ---
Pt awake upon entry, in bed. No C/O pain at this time. Shift assessment complete, left Pt call light in reach, bed in lowest position.
[2021-05-30 08:02] LABS: BAND 6 % (0-10); LYMPHOCYTE 21 % (20.0-51.0); MYELOCYTE 1 % (0-0); NEUTROPHILS 63 % (42.0-75.2)
[2021-05-30 08:06] LABS: PLATELET ESTIMATE INCREASED (NORMAL)
[2021-05-30 08:14] VITALS: BP 137/72; PULSE 74; TEMP 97.7
[2021-05-30] MEDS ORDERED: NOVLOG SQ (09:30)
[2021-05-30 12:04] VITALS: BP 133/66; PULSE 73; TEMP 98
--- NOTE | 2021-05-30 16:18 | NUR ---
Ginseng Farmer collaborated with MAHENDRA Adams who advised patient has been independent in her room.
[2021-05-30 16:30] VITALS: BP 141/68; PULSE 75; TEMP 98
[2021-05-30 20:04] VITALS: BP 140/72; PULSE 72; TEMP 98.4
[2021-05-31] VITALS (9 sets, daily range): BP systolic 119–172; BP diastolic 66–97; PULSE 73–87; TEMP 97.6–99.4
--- NOTE | 2021-05-31 06:47 | NUR ---
Patient has had an uneventful night with no complaints of pain. She has remained on 5 liters 02 and is tolerating well. She is independent in the room. Call light in reach and no new concerns.
[2021-05-31 07:47] LABS: HEMOGLOBIN 11.6 g/dl (12.5-16.0); MEAN CELL VOLUME 81 fl (80.0-100.0); MEAN CORPUSCULAR HEMOGLOBIN 26 pg (27.0-31.0); MEAN CORPUSCULAR HGB CONC 32 g/dl (33.0-37.0); MEAN PLATELET VOLUME 10.5 fl (7.4-10.4); PLATELET COUNT 454 K/mm3 (130-400); RED BLOOD COUNT 4.42 M/mm3 (4.10-5.30); REDCELL DISTRIBUTION WIDTH-CV 14.3 % (11.5-14.5)
[2021-05-31 07:55] LABS: HEMATOCRIT 35.9 % (37.0-47.0)
[2021-05-31 08:56] LABS: BAND 11 % (0-10); LYMPHOCYTE 18 % (20.0-51.0); METAMYELOCYTE 1 % (0-0); NEUTROPHILS 68 % (42.0-75.2)
[2021-05-31 08:57] LABS: PLATELET ESTIMATE INCREASED (NORMAL)
--- NOTE | 2021-05-31 08:58 | NUR ---
PT HAS BEEN TITRATED DOWN TO 2L NC, STATES SHE IS NOT HAVING ANY DIFFICULTY BREATHING. ASSESSMENT COMPLETED, PT VSS. WBG WAS 256 THIS AM, AND LEVEMIR AND NOVOLOG HAVE BEEN GIVEN TO MAINTAIN LOWER BLOOD GLUCOSE LEVELS. THE PATIENT IS IN GOOD SPIRITS THIS MORNING AND HOPING TO DISCHARGE HOME. SHE STATES THAT HER SISTER IS NOT DOING SO WELL AT HOME, AND IS NOT COMING TO THE HOSPITAL BECAUSE SHE IS KEEPING WATCH OVER THE HOUSES AND ANIMALS WHILE THE PATIENT'S MOTHER AND THE PATIENT ARE HOSPITALIZED. NO OTHER CONCERNS AT THIS TIME. AM MEDICATION GIVEN PER NOV.
[2021-05-31 15:13] LABS: CALCIUM 8.5 mg/dL (8.4-10.2); CREATININE, serum 0.8 (0.52-1.25); POTASSIUM 4.2 mmol/L (3.4-5.0)
--- NOTE | 2021-05-31 19:00 | NUR ---
Pt had a stable day. Pt agreed to taking a shower, and o2 was titrated down to 1L. Given her COPD status, the lower O2 saturations are common for her. No other concerns. Report given to MAHENDRA Bueno.
[2021-06-01] VITALS (7 sets, daily range): BP systolic 124–165; BP diastolic 62–84; PULSE 70–84; TEMP 98–98.8
[2021-06-01 06:45] LABS: HEMATOCRIT 37.9 % (37.0-47.0); HEMOGLOBIN 12.1 g/dl (12.5-16.0); MEAN CELL VOLUME 81 fl (80.0-100.0); MEAN CORPUSCULAR HEMOGLOBIN 26 pg (27.0-31.0); MEAN CORPUSCULAR HGB CONC 32 g/dl (33.0-37.0); MEAN PLATELET VOLUME 10.2 fl (7.4-10.4); PLATELET COUNT 515 K/mm3 (130-400); RED BLOOD COUNT 4.66 M/mm3 (4.10-5.30)
[2021-06-01 07:09] LABS: ALBUMIN 3.6 gm/dL (3.5-5.0); BILIRUBIN,TOTAL 0.3 mg/dL (0.0-1.0); CALCIUM 8.8 mg/dL (8.4-10.2); CREATININE, serum 0.77 (0.52-1.25); TOTAL PROTEIN 6.8 gm/dL (6.4-8.2)
[2021-06-01 08:10] LABS: BAND 8 % (0-10); LYMPHOCYTE 26 % (20.0-51.0); METAMYELOCYTE 2 % (0-0); MYELOCYTE 3 % (0-0); NEUTROPHILS 59 % (42.0-75.2)
[2021-06-01 08:11] LABS: HYPOCHROMIA 2+; PLATELET ESTIMATE INCREASED (NORMAL)
[2021-06-01 10:42] LABS: PATHOLOGY DIFF REVIEW OK
--- NOTE | 2021-06-01 18:26 | NUR ---
PT O2 INCREASED SLIGHTLY IN AM. OTHERWISE, UNEVENTFUL DAY. HOPEFUL FOR D/C TOMORROW. PT DENIES PAIN. HAS NO NEEDS AT THIS TIME. CALL SPICER IN REACH.
--- NOTE | 2021-06-01 20:55 | NUR ---
Assessment complete. Patient is alert and oriented with no complaints of pain. BG is 422 and order for 10 units regular insulin IV obtained; will recheck in 1 hour. Patient on 2.5 liters oxygen nasal cannula and tolerating well; lung sounds are clear with diminished bases, as patient is obese. No edema is noted and skin is intact. Call light in reach and no additional concerns at this time.
[2021-06-02 05:17] VITALS: BP 143/65; PULSE 85; TEMP 98.2
--- NOTE | 2021-06-02 07:06 | NUR ---
RECEIVED REPORT FROM MAHENDRA FARLEY. PT AWAKE/ALERT IN BED WATCHING TV. DENIES PAIN. NO NEEDS AT THIS TIME. CALL SPICER IN REACH. OXYGEN ON
[2021-06-02 08:16] LABS: HEMATOCRIT 37.4 % (37.0-47.0); HEMOGLOBIN 12.6 g/dl (12.5-16.0); MEAN CELL VOLUME 78 fl (80.0-100.0); MEAN CORPUSCULAR HEMOGLOBIN 26 pg (27.0-31.0); MEAN CORPUSCULAR HGB CONC 34 g/dl (33.0-37.0); MEAN PLATELET VOLUME 10.4 fl (7.4-10.4); PLATELET COUNT 541 K/mm3 (130-400); RED BLOOD COUNT 4.77 M/mm3 (4.10-5.30); REDCELL DISTRIBUTION WIDTH-CV 14.1 % (11.5-14.5)
[2021-06-02 08:32] LABS: C-REACTIVE PROTEIN 1.2 mg/dL (0.00-0.50); CALCIUM 9.2 mg/dL (8.4-10.2); CREATININE, serum 0.91 mg/dL (0.57-1.11); POTASSIUM 3.9 mmol/L (3.5-4.5)
[2021-06-02 08:36] VITALS: BP 144/74; PULSE 81; TEMP 98.1
[2021-06-02] MEDS ORDERED: DECADRON6 MG PO (10:59)
[2021-06-02] MEDS ORDERED: NOVLOG SQ (11:00)
[2021-06-02] MEDS ORDERED: LEVEMIR100 U/ML SQ (11:01)
[2021-06-02 12:24] VITALS: BP 149/78; PULSE 83; TEMP 98.8
--- NOTE | 2021-06-02 15:47 | NUR ---
DISCHARGE INSTRUCTIONS REVIEWED WITH PATIENT. IV REMOVED. QUESTIONS INVITED AND ANSWERED. NO OTHER REQUESTS AT THIS TIME. WALKED PT TO EXIT, WHERE SISTER PICKED UP. PT SENT HOME W/OXYGEN
--- NOTE | 2021-06-05 08:21 | NUR ---
(Late Entry) Platform Builder spoke with patient by phone on 06/02/21 about setting up home oxygen. Patient is agreeable to have referral sent to [facility]. SW faxed referral and order to Mikaela at [facility] who advised they would deliver oxygen to the hospital. SW confirmed with RN that patient's oxygen was delivered. No additional needs at this time.
== END 2021-06-02 15:30 | disposition home or self-care (01) | DRG 177 ==
LOC: COL.ER 05:51 → ICU 08:25 → MEDICAL 08:25 → ICU 18:30 → MEDICAL 05-29 19:06
PROVIDERS: Internal Medicine; Student in an Organized Health Care Education/Training Program; ADMIT Internal Medicine
PROC: XW043E5 Introduction of Remdesivir Anti-infective into Central Vein, Percutaneous Approach, New Technology Group 5 (ICD-10-PCS; principal; 2021-05-29)
DX: U07.1 COVID-19 (principal); J12.82 Pneumonia due to coronavirus disease 2019; J96.01 Acute respiratory failure with hypoxia; Z68.41 Body mass index [BMI] 40.0-44.9, adult; E11.65 Type 2 diabetes mellitus with hyperglycemia; I10 Essential (primary) hypertension; E78.5 Hyperlipidemia, unspecified; J44.9 Chronic obstructive pulmonary disease, unspecified; J45.909 Unspecified asthma, uncomplicated; E66.9 Obesity, unspecified; Z66 Do not resuscitate; C80.1 Malignant (primary) neoplasm, unspecified; Z86.73 Personal history of transient ischemic attack (TIA), and cerebral infarction without residual deficits; Z90.710 Acquired absence of both cervix and uterus; Z90.49 Acquired absence of other specified parts of digestive tract
CPT/HCPCS: 99223-AI; 99232-AI; 99233-AI; 99239; J0696; J1100; J1650; J1815; J1885; J2405; J7030; J7050; J8540; Q9967

== ENCOUNTER 2021-08-15 21:03 | Emergency (ER) | payer OTHER ==
[~2021-08-15] VITALS: Ht 167.6 cm; Wt 113.2 kg
[~2021-08-15 21:03] MED LIST changes: +DECADRON6 MG PO; +FEMARA PO; +MOTRIN 600600 MG/TAB PO; +TYLENOL 325MG325 MG PO
[2021-08-15 21:40] VITALS: TEMP 97.2
[2021-08-15 21:55] LABS: BASO # 0.1 K/mm3 (0.0-0.2); BASO % 0.5 % (0.0-2.0); EOS # 0.3 K/mm3 (0.0-0.7); EOS % 2.7 % (0-4.0); GRAN # 8.2 K/mm3 (1.4-6.5); GRAN % 64.1 % (42.2-75.2); HEMATOCRIT 42.3 % (37.0-47.0); HEMOGLOBIN 13.9 g/dl (12.5-16.0); LYMPH # 3.3 K/mm3 (1.2-3.4); LYMPH % 25.6 % (20.0-51.0); MEAN CELL VOLUME 84 fl (80.0-100.0); MEAN CORPUSCULAR HEMOGLOBIN 28 pg (27.0-31.0); MEAN CORPUSCULAR HGB CONC 33 g/dl (33.0-37.0); MEAN PLATELET VOLUME 10.5 fl (7.4-10.4); MONO # 0.8 K/mm3 (0.1-0.6); MONO % 6.6 % (1.7-9.3); PLATELET COUNT 368 K/mm3 (130-400); RED BLOOD COUNT 5.02 M/mm3 (4.10-5.30); REDCELL DISTRIBUTION WIDTH-CV 14.1 % (11.5-14.5)
[2021-08-15 22:16] LABS: ALANINE AMINOTRANSFERASE 29 U/L (0-55); ALKALINE PHOSPHATASE 79 U/L (40-150); ANION GAP 14 mmol/L (7-16); AST,SGOT 21 U/L (5-34); BILIRUBIN,TOTAL 0.3 mg/dL (0.2-1.2); BLOOD UREA NITROGEN 15 mg/dL (10-20); CARBON DIOXIDE 25 mmol/L (22-29); CHLORIDE 99 mmol/L (98-107); CREATININE, serum 1.01 mg/dL (0.57-1.11); GLUCOSE 393 mg/dL (70-99); LIPASE 149 U/L (8-78); POTASSIUM 4.7 mmol/L (3.5-4.5); SODIUM 138 mmol/L (136-145); TOTAL PROTEIN 7.8 gm/dL (6.2-8.1)
[2021-08-15 22:23] LABS: TROPONIN-I < 0.010 ng/mL (0.00-0.033)
[2021-08-15 23:09] LABS: COLLECTION METHOD CLEAN CATCH
[2021-08-15 23:17] LABS: PH 5 (5-8); SQUAMOUS EPITHELIAL 0-2 /hpf (0-10); URINE APPEARANCE Clear (CLEAR/HAZY); URINE BACTERIA None Seen (NONE SEEN); URINE BILIRUBIN Negative (NEGATIVE); URINE BLOOD Negative (NEGATIVE); URINE COLOR Yellow (YELLOW); URINE GLUCOSE 2+ (NEGATIVE); URINE KETONE Negative (NEGATIVE); URINE LEUKOCYTE ESTERASE Negative (NEGATIVE); URINE NITRATE Negative (NEGATIVE); URINE PROTEIN(semi-quant) 2+ (NEGATIVE); URINE RBC 0-2 /hpf (0-2); URINE UROBILINOGEN Negative (NEGATIVE)
[2021-08-16 01:06] VITALS: BP 116/78; PULSE 76
== END 2021-08-16 01:06 | disposition home or self-care (01) ==
LOC: COL.ER 21:03
PROVIDERS: Emergency Medicine
DX: R10.12 Left upper quadrant pain (principal); J44.9 Chronic obstructive pulmonary disease, unspecified; E78.5 Hyperlipidemia, unspecified; I10 Essential (primary) hypertension; Z90.49 Acquired absence of other specified parts of digestive tract; Z79.899 Other long term (current) drug therapy
CPT/HCPCS: J1885; J3010; J7030; Q9967

== ENCOUNTER 2021-08-25 18:38 | Emergency (ER) | payer OTHER ==
[~2021-08-25] VITALS: Ht 167.6 cm; Wt 112.7 kg
[2021-08-25 19:12] VITALS: TEMP 97.8
[2021-08-25 21:33] LABS: COLLECTION METHOD CLEAN CATCH
[2021-08-25 21:57] LABS: BASO # 0.1 K/mm3 (0.0-0.2); BASO % 0.4 % (0.0-2.0); EOS # 0.4 K/mm3 (0.0-0.7); EOS % 3.2 % (0.0-4.0); GRAN # 7.5 K/mm3 (1.4-6.5); GRAN % 61.3 % (42.2-75.2); HEMATOCRIT 40.6 % (37.0-47.0); HEMOGLOBIN 13.7 g/dl (12.5-16.0); LYMPH # 3.3 K/mm3 (1.2-3.4); LYMPH % 27.4 % (20.0-51.0); MEAN CELL VOLUME 83 fl (80.0-100.0); MEAN CORPUSCULAR HEMOGLOBIN 28 pg (27-31); MEAN CORPUSCULAR HGB CONC 34 g/dl (33.0-37.0); MEAN PLATELET VOLUME 10.2 fl (7.4-10.4); MONO # 0.9 K/mm3 (0.1-0.6); MONO % 7.3 % (1.7-9.3); PLATELET COUNT 305 K/mm3 (130-400); RED BLOOD COUNT 4.92 M/mm3 (4.10-5.30); REDCELL DISTRIBUTION WIDTH-CV 13.9 % (11.5-14.5)
[2021-08-25 22:11] LABS: MUCOUS Present (NOT PRESENT); PH 5 (5-8); SQUAMOUS EPITHELIAL 0-2 /hpf (0-10); URINE APPEARANCE Hazy (CLEAR/HAZY); URINE BACTERIA None Seen (NONE SEEN); URINE BILIRUBIN Negative (NEGATIVE); URINE BLOOD Negative (NEGATIVE); URINE COLOR Yellow (YELLOW); URINE GLUCOSE Negative (NEGATIVE); URINE KETONE Negative (NEGATIVE); URINE LEUKOCYTE ESTERASE Negative (NEGATIVE); URINE NITRATE Negative (NEGATIVE); URINE PROTEIN(semi-quant) 2+ (NEGATIVE); URINE UROBILINOGEN Negative (NEGATIVE)
[2021-08-25 22:14] LABS: ALBUMIN 3.8 gm/dL (3.5-5.0); BILIRUBIN,TOTAL 0.3 mg/dL (0.2-1.2); CALCIUM 10.4 mg/dL (8.4-10.2); CREATININE, serum 0.97 mg/dL (0.57-1.11); POTASSIUM 3.9 mmol/L (3.5-4.5); TOTAL PROTEIN 7.4 gm/dL (6.2-8.1)
[2021-08-25] MEDS ORDERED: PRILOTC PO (22:29)
[2021-08-25 23:02] VITALS: BP 154/55; PULSE 65
== END 2021-08-25 23:02 | disposition home or self-care (01) ==
LOC: COL.ER 18:38
PROVIDERS: Emergency Medicine
DX: R10.12 Left upper quadrant pain (principal); D72.829 Elevated white blood cell count, unspecified; C80.1 Malignant (primary) neoplasm, unspecified; E11.9 Type 2 diabetes mellitus without complications; I10 Essential (primary) hypertension; E78.5 Hyperlipidemia, unspecified; J44.9 Chronic obstructive pulmonary disease, unspecified; N28.9 Disorder of kidney and ureter, unspecified; Z87.19 Personal history of other diseases of the digestive system; Z86.73 Personal history of transient ischemic attack (TIA), and cerebral infarction without residual deficits; Z90.49 Acquired absence of other specified parts of digestive tract; Z79.4 Long term (current) use of insulin; Z79.51 Long term (current) use of inhaled steroids; Z79.84 Long term (current) use of oral hypoglycemic drugs; Z79.899 Other long term (current) drug therapy

== ENCOUNTER 2022-04-26 16:17 | Emergency (ER) | payer OTHER ==
[~2022-04-26 16:17] MED LIST changes: +PRILOTC PO
[2022-04-26 16:25] VITALS: TEMP 98.7
[2022-04-26] MEDS ORDERED: ROBAXIN 75750 MG/TAB PO (16:37)
[2022-04-26] MEDS ORDERED: NORCO 325 MG-51 TAB PO (16:37)
[2022-04-26 16:45] VITALS: BP 125/71; PULSE 93
== END 2022-04-26 16:45 | disposition home or self-care (01) ==
LOC: COL.ER 16:17
DX: M54.50 Low back pain, unspecified (principal); Z87.39 Personal history of other diseases of the musculoskeletal system and connective tissue; X50.0XXA Overexertion from strenuous movement or load, initial encounter

== ENCOUNTER → 2022-10-31 | Outpatient (CLI) | payer OTHER ==
[~2022-10-31] MED LIST changes: +ROBAXIN 75750 MG/TAB PO
== END ==
LOC: COL.RAD 09:17
DX: N20.0 Calculus of kidney (principal); N28.81 Hypertrophy of kidney; K57.30 Diverticulosis of large intestine without perforation or abscess without bleeding; C56.9 Malignant neoplasm of unspecified ovary; R91.1 Solitary pulmonary nodule
CPT/HCPCS: Q9967

== ENCOUNTER 2023-09-11 12:33 | Emergency (ER) | payer OTHER ==
[~2023-09-11] VITALS: Ht 167.6 cm; Wt 113.6 kg
[~2023-09-11 12:33] MED LIST changes: +NIZORAL CR 60GM TOP
[2023-09-11 12:38] VITALS: TEMP 98.7
[2023-09-11] MEDS ORDERED: PERCOCET 325 MG1 TA2 PO (14:13)
[2023-09-11 14:55] VITALS: BP 121/71; PULSE 77
== END 2023-09-11 14:55 | disposition home or self-care (01) ==
LOC: COL.ER 12:33
DX: S42.201A Unspecified fracture of upper end of right humerus, initial encounter for closed fracture (principal); W18.30XA Fall on same level, unspecified, initial encounter; Y93.01 Activity, walking, marching and hiking
CPT/HCPCS: J2270; J2405; J3010

== ENCOUNTER 2024-03-27 20:06 | Emergency (ER) | payer OTHER ==
[~2024-03-27] VITALS: Ht 167.6 cm; Wt 120.3 kg
[2024-03-27 20:20] VITALS: TEMP 99.5
[2024-03-27] MEDS ORDERED: Acetaminophen 325 MG TAB PO ONE (21:45)
[2024-03-27] MEDS ORDERED: Ibuprofen 400 MG TAB PO ONE (21:45)
[2024-03-27 22:25] VITALS: BP 155/83; PULSE 98
== END 2024-03-27 22:25 | disposition home or self-care (01) ==
LOC: COL.ER 20:06
DX: H69.91 Unspecified Eustachian tube disorder, right ear (principal)

== ENCOUNTER → 2024-05-04 | Outpatient (CLI) | payer OTHER | LOC: COL.RAD 11:35 | DX: M25.462 Effusion, left knee (principal); M25.562 Pain in left knee ==

== ENCOUNTER 2024-05-13 13:58 | Emergency (ER) | payer OTHER ==
[~2024-05-13] VITALS: Ht 167.6 cm; Wt 129.5 kg
[2024-05-13 14:05] VITALS: TEMP 98.4
[2024-05-13 14:33] LABS: BASO % 0.4 % (0.0-2.0); EOS # 0.2 K/mm3 (0.0-0.7); EOS % 1.8 % (0.0-4.0); GRAN # 7.4 K/mm3 (1.4-6.5); GRAN % 73.3 % (42.2-75.2); HEMATOCRIT 37.6 % (37.0-47.0); HEMOGLOBIN 12.1 g/dl (12.5-16.0); LYMPH # 1.9 K/mm3 (1.2-3.4); LYMPH % 18.5 % (20.0-51.0); MEAN CELL VOLUME 83 fl (80.0-100.0); MEAN CORPUSCULAR HEMOGLOBIN 27 pg (27-31); MEAN CORPUSCULAR HGB CONC 32 g/dl (33.0-37.0); MEAN PLATELET VOLUME 10.2 fl (7.4-10.4); MONO # 0.6 K/mm3 (0.1-0.6); MONO % 5.6 % (1.7-9.3); PLATELET COUNT 327 K/mm3 (130-400); RED BLOOD COUNT 4.51 M/mm3 (4.10-5.30)
[2024-05-13 14:53] LABS: ALANINE AMINOTRANSFERASE 16 U/L (0-55); ALBUMIN 3.3 g/dL (3.5-5.0); ALKALINE PHOSPHATASE 134 U/L (40-150); ANION GAP 18 mmol/L (7-16); AST,SGOT 14 U/L (5-34); BILIRUBIN,TOTAL 0.4 mg/dL (0.2-1.2); BLOOD UREA NITROGEN 15 mg/dL (10-20); CALCIUM 9.2 mg/dL (8.4-10.2); CHLORIDE 104 mEq/L (98-107); CREATININE, serum 1.05 mg/dL (0.57-1.11); POTASSIUM 4.2 mEq/L (3.5-4.5); SODIUM 140 mEq/L (136-145); TOTAL PROTEIN 6.8 g/dl (6.2-8.1)
[2024-05-13 14:55] LABS: GLUCOSE 433 mg/dL (70-99)
[2024-05-13 15:00] LABS: TROPONIN-I < 0.010 ng/mL (0.00-0.033)
[2024-05-13] MEDS ORDERED: Ondansetron 4 MG/2 ML VIAL IV ONE (16:30)
[2024-05-13] MEDS ORDERED: NS 100 ML IV SCH (16:38)
[2024-05-13] MEDS ORDERED: Iohexol 300 - 100 ML VIAL IV ONE (16:39)
[2024-05-13 18:31] VITALS: BP 147/82; PULSE 87
== END 2024-05-13 18:31 | disposition home or self-care (01) ==
LOC: COL.ER 13:58
PROVIDERS: Nurse Practitioner
DX: R22.43 Localized swelling, mass and lump, lower limb, bilateral (principal); I10 Essential (primary) hypertension; R11.0 Nausea; Z87.891 Personal history of nicotine dependence
CPT/HCPCS: J2405; Q9967

== ENCOUNTER 2024-07-06 12:43 | Emergency (ER) | payer OTHER ==
[~2024-07-06] VITALS: Ht 167.6 cm; Wt 113.6 kg
[2024-07-06 12:59] VITALS: TEMP 98.5
[2024-07-06] MEDS ORDERED: HYDROmorphone 0.5 MG/0.5 ML SYRINGE IM ONE (14:30)
[2024-07-06] MEDS ORDERED: diazePAM 5 MG TAB PO ONE (14:30)
[2024-07-06] MEDS ORDERED: Ketorolac 15 MG/ML VIAL IM ONE (14:30)
[2024-07-06 16:58] VITALS: BP 173/99; PULSE 75
[2024-07-13] MEDS ORDERED: PREDNISONE50 MG PO (11:58)
[2024-07-13] MEDS ORDERED: NEURONTIN300 MG/CAP PO (11:58)
== END 2024-07-06 16:58 | disposition home or self-care (01) ==
LOC: COL.ER 12:43
DX: M25.521 Pain in right elbow (principal)
CPT/HCPCS: J1171; J1885

== ENCOUNTER 2024-07-08 05:14 | Emergency (ER) | payer OTHER ==
[~2024-07-08] VITALS: Ht 167.6 cm; Wt 113.6 kg
[2024-07-08 05:21] VITALS: BP 166/84; TEMP 98
[2024-07-08] MEDS ORDERED: Ketorolac 30 MG/ML VIAL IM ONE (05:45)
[2024-07-08] MEDS ORDERED: Home HYDROcodone/Acetaminophen 5/325 MG #4 TABS/PACK PO ONE (05:45)
[2024-07-08 05:53] VITALS: PULSE 74
[2024-07-13] MEDS ORDERED: NEURONTIN300 MG/CAP PO (11:58)
[2024-07-13] MEDS ORDERED: PREDNISONE50 MG PO (11:58)
== END 2024-07-08 05:53 | disposition home or self-care (01) ==
LOC: COL.ER 05:14
DX: M79.601 Pain in right arm (principal)
CPT/HCPCS: J1885